=== PATIENT | male | born 1935 | race Caucasian/White ===

== ENCOUNTER 2016-10-18 21:14 | Inpatient (IN) | payer MEDICARE ==
--- NOTE | ~2016-10-18 | US84 ---
[id number] [facility]. [place] [address] [facility]. [place], [place] [address] [id number] I MR#: [id number] Acc #: [id number] NAME: YANELI ARCE : 1935 SEX: M STUDY DATE/TIME: 10/23/2016 14:57 UNIT: [facility] ROOM: 572 STUDY DESCRIPTION: US LE Veins Complete Artemio Stdy Attending Physician: Jax Gonzalez M.D. Ordering Physician: Parth Andre M.D. Primary Care Physician: Nancy Mosqueda M.D. MEDICAL IMAGING REPORT This report is preliminary unless electronic signature is present EXAM Bilateral lower extremity venous duplex, 10/23/2016. HISTORY Bilateral lower extremity edema for 4 days. Evaluate for deep vein thrombosis. TECHNIQUE Venous ultrasound examination of both lower extremities was performed using grayscale, spectral Doppler and color flow Doppler imaging. FINDINGS The examination is negative. There is no evidence of deep venous thrombus from the groin to the lower calf bilaterally. Visualized greater saphenous veins are also patent. IMPRESSION Negative examination. No evidence of lower extremity deep venous thrombosis. Dictated by... Brant Peña M.D. THIS IS AN ELECTRONICALLY VERIFIED REPORT Brant Peña M.D. at 10/24/2016 8:05 AM TERENCE/jerry TD: 10/23/2016 17:17 JOB #: [id number] MEDICAL IMAGING REPORT Page 1 of 1 COPY
--- NOTE | ~2016-10-18 | TOC ---
Unit #: [id number] #: [id number] Patient: YANELI ARCE [id number] [address] [place], [place] [address] [id number] I MR#: [id number] NAME: YANELI ARCE ROOM: 572 Age: 81 Sex: M Admission Date: 10/19/2016 : 1935 Attending Physician: Jax Gonzalez M.D. Primary Care Physician: Nancy Mosqueda M.D. TRANSFER OF CARE SUMMARY DIAGNOSES 1. Sepsis present on admission. 2. Aspiration pneumonia contributing to the sepsis, currently on Merrem. 3. 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 4. Dysphasia. Was seen by Dr. Esposito. No trach at this moment. Actually, the patient's tells me that she would not want the patient ever to have a PEG placed. 5. Acute hypoxic respiratory failure. The patient is currently still on oximeter at 7 liters a minute. 6. Controlled type 2 diabetes. 7. Prior CVA with dysphasia. 8. Gastroesophageal reflux disease. 9. Paroxysmal atrial fibrillation in sinus rhythm. 10. History of intracranial hemorrhage while he was on anticoagulant. This is remote. CONSULTANTS Pulmonary with Dr. Andre. PROCEDURES PERFORMED None. DIAGNOSTIC DATA IMAGING: Chest x-ray on 10/18/2016 with impression mild congestive heart failure. New since previous exam. Plate-like atelectasis in the right lower lung field with a shallow inspiratory effort. There is more extensive consolidation in the left lung base. This could simply represent bibasilar atelectasis. Left base pneumonia cannot be excluded. CT scan of the chest on 10/19/2016 with impression of bilateral interstitial thickening. This is nonspecific and may be interstitial edema or could be infectious or inflammatory. Consolidation in the base of the left lower lobe and lingula. Also mild consolidation/atelectasis in the base of the right lower lobe. Given the patient's history of pneumonia, this would be in keeping with the diagnosis of pneumonia. Followup to clearing is recommended. X-ray of the abdomen on 10/21/2016 with impression of large stool burden in the rectum with moderate amount of stool in the remainder of the colon. No obstruction. Lower extremity ultrasound with impression of negative examination. No evidence of lower extremity deep venous thrombosis. Unit #: [id number] #: [id number] Patient: YANELI ARCE CT angiogram of the chest on 10/23/2016 with impression of no pulmonary embolus identified. Evaluation of the lower lobe pulmonary arteries is limited by motion artifact. Small bilateral pleural effusions with mild atelectasis in the bilateral lower lobes, greater in the posterior right lower lobe and additional mild atelectasis in the right middle lobe and lingula. Moderate-sized hiatal hernia. Mild dilatation of the proximal descending thoracic aorta measuring 3.3 cm in diameter. The patient had echo done on 10/19/2016 with impression of technical difficult examination with a left ventricular systolic function normal. Estimated at 60%. Mild to moderate enlarged heart atrial size and moderately enlarged right ventricle. Mild mitral regurgitation is present. Mild tricuspid regurgitation is present. Mild pulmonic valvular regurgitation is present. Small pleural pericardial effusion versus fat tissue. LABORATORY: From today, BMP with glucose 171, BUN 31, creatinine 0.9, sodium 136, potassium 4.2, chloride 100, CO2 29, calcium 8.2, magnesium 1.9. CBC with white blood cell count 10.3, RBC 4.39, hemoglobin 13.8, hematocrit 42.9, MCV 97.5, MCH 31.5, MCHC 32.3, RDW 15.8, platelets 364, (1) 7.9. Please note that we have checked urine strep antigen, which is negative. Legionella was also negative. HOSPITAL COURSE The patient is an 81-year-old male with a past medical history of remote CVA, resulting in dysphasia. He had an intracranial bleed while on anticoagulant in the past. The patient has a chronic catheter in place, paroxysmal atrial fibrillation, chronic obstructive pulmonary disease, essential hypertension, type 2 diabetes, recurrent aspiration. The patient was brought to the emergency department due to symptoms of dyspnea. The patient has had about four days of symptoms of cough productive of sputum, felt somewhat feverish and blood sugar was difficult to control. Therefore, he presented to his primary care physician with the diagnosis of urinary tract infection. He was given Omnicef. Despite being on Omnicef he has become more congested and more dyspneic. Therefore, he presented to the emergency department for further evaluation. On admission his oxygen saturation was 83% on room air. Blood glucose was 576. He was bolused, given Rocephin, Zithromax and 20 units of NovoLog. He was admitted for aspiration pneumonia with failed outpatient Omnicef antibiotic. He was seen in consultation with Dr. Andre. The patient has been receiving antibiotics with Merrem since 10/22/2016. He was initially treated with Zosyn on admission, but when it was determined that his urinary tract infection from his chronic catheter had ESBL this was then changed to Merrem. The patient's tells me that at baseline he does not ambulate. The patient has a hospital bed. She has a lift that she uses to get him up to move around. The patient does not participate in his total care. He is only able to help with his pivots, but does not do anything else other than that. He does have a history of recurrent aspiration pneumonia after his CVA. He does have dysphasia. He is already on thickened diet. He has had a PEG in the past and his tells me that she would not want to go down that path again. She tells me that she is compliant with a nectar thickened diet. I voiced to her that the patient will always be at risk to aspirate and he will aspirate again and again and even when she is 100% complaint with this he is still at risk to aspirate. The topic of comfort Hospice care has been brought up to the patient's , but she states that she would not want Unit #: [id number] #: [id number] Patient: YANELI ARCE for him to be under Hospice. She would like for him to be discharged home to her when he is stable. At this time he is still requiring much oxygen at 7 liters a minute. We are attempting to wean off of oxygen, but have not been very successful. Rehab ruled out heart involvement with normal BNP, normal echo and have also ruled out pulmonary embolism. At this time the patient's prognosis is guarded. Believe the patient has a very poor quality of life, given he has a hospital bed, does not do much for himself and will always be at risk to aspirate. Dictated by... SUMAYA Angel TD: 10/26/2016 13:41 JOB #: [id number] TRANSFER OF CARE SUMMARY Page 1 of 1 X X TRANSFER OF CARE SUMMARY
--- NOTE | ~2016-10-18 | CT57 ---
[facility] A Service of [facility] RADIOLOGY TEXT RESULTS PATIENT: YANELI ARCE LOCATION: [facility] 572-01 : [birth year] UNIT #: [id number] AGE: [address]: Jax Gonzalez MD SEX: M ORDER DR: [id number] [facility] [address] [facility]. [place], [place] [address] [id number] I MR#: [id number] Acc #: [id number] NAME: YANELI ARCE : 1935 SEX: M STUDY DATE/TIME: 10/19/2016 12:50 UNIT: [facility] ROOM: [facility] STUDY DESCRIPTION: CT Chest Wo Cont Attending Physician: Jax Gonzalez M.D. Ordering Physician: Jax Gonzalez M.D. Primary Care Physician: Nancy Mosqueda M.D. MEDICAL IMAGING REPORT This report is preliminary unless electronic signature is present EXAM CT of the chest without contrast INDICATIONS Pneumonia, fever, and shortness of breath since October 13. TECHNIQUE CT of the chest was performed without contrast. Coronal and sagittal reformatted images were obtained. This CT exam was performed with one or more of the following radiation dose reduction techniques: automatic exposure control, adjustment of mA and/or kV according to patient size, and iterative reconstruction. COMPARISON 05/23/2014. FINDINGS There are emphysematous changes of the lungs. There is airspace consolidation in the base of the left lower lobe and consolidation/atelectasis within the base of the right lower lobe. There is trace pleural fluid on the right. There is some mild consolidation or atelectasis in the posterior lingula. There is bilateral interstitial thickening. There is no lymphadenopathy. There is a moderate sized hiatal hernia. Limited imaging of the upper abdomen demonstrates simple and hyperdense cysts in the right kidney. Bone windows demonstrate degenerative changes of the thoracic spine. IMPRESSION 1. There is bilateral interstitial thickening. This is nonspecific and may be interstitial edema or could be infectious or inflammatory. 2. There is consolidation in the base of the left lower lobe and lingula [facility] A Service of [facility] RADIOLOGY TEXT RESULTS PATIENT: YANELI ARCE LOCATION: [facility] 572-01 : [birth year] UNIT #: [id number] AGE: [address]: Jax Gonzalez MD SEX: M ORDER DR: and also mild consolidation/atelectasis in the base of the right lower lobe. Given the patient's history of pneumonia, this would be in keeping with the diagnosis of pneumonia. Follow up to clearing is recommended. 3. Additional findings as described. Dictated by... Douglas Jesus M.D. THIS IS AN ELECTRONICALLY VERIFIED REPORT Douglas Jesus M.D. at 10/19/2016 4:43 PM MATT/gemma TD: 10/19/2016 15:36 JOB #: [id number] MEDICAL IMAGING REPORT Page 1 of 1 COPY
--- NOTE | ~2016-10-18 | EKG ---
PATIENT: YANELI ARCE UNIT #: [id number] Ventricular Rate: 82 BPM Atrial Rate: 82 BPM P-R Interval: 206 ms QRS Duration: 84 ms Q-T Interval: 364 ms QTC Calculation(Bezet): 425 ms P [place]: 62 degrees Calculated R [place]: -16 degrees Calculated T [place]: 42 degrees Diagnosis Line: Normal sinus rhythm Diagnosis Line: Inferior infarct , age undetermined Diagnosis Line: Abnormal ECG Diagnosis Line: No previous ECGs available Diagnosis Line: Confirmed by SHE SANTIAGO MD ([id number]) on Diagnosis Line: 10/20/2016 6:35:36 AM INTERPRETING MDGustavo RIVERA
--- NOTE | ~2016-10-18 | DS ---
Unit #: [id number] #: [id number] Patient: YANELI ARCE [id number] [address] [address] [id number] I MR#: [id number] NAME: YANELI ARCE ROOM: 572 Age: 81 Sex: M Admission Date: 10/19/2016 : 1935 Discharge Date: Attending Physician: Jax Gonzalez M.D. Primary Care Physician: Nancy Mosqueda M.D. DISCHARGE SUMMARY ADDENDUM Please see complete discharge summary dictated on October 26, 2016, for details of initial part of hospital stay. Essentially, over the weekend, we awaited certification from [facility]. Once a bed is available at [facility], the patient will be transferred for ongoing evaluation and/or care. His Coreg has been resumed at 6.25 mg p.o. b.i.d. and he is currently on IV Solu-Medrol as well as IV Merrem. Once a bed is available at [facility], the patient will be transferred. Please see above transfer of care summary for details of hospital course. Dictated by... Catherine Grewal/urbano TD: 10/29/2016 11:22 JOB #: [id number] DISCHARGE SUMMARY Page 1 of 1 X Jax Gonzalez MD X DISCHARGE SUMMARY
--- NOTE | ~2016-10-18 | CT16 ---
[facility] A Service of [facility] RADIOLOGY TEXT RESULTS PATIENT: YANELI ARCE LOCATION: [facility] 572-01 : [birth year] UNIT #: [id number] AGE: [address]: Jax Gonzalez MD SEX: M ORDER DR: [id number] [facility] [address] [facility] [place], [place] [address] [id number] I MR#: [id number] Acc #: [id number] NAME: YANELI ARCE : 1935 SEX: M STUDY DATE/TIME: 10/23/2016 18:40 UNIT: [facility] ROOM: [facility] STUDY DESCRIPTION: CT Angio Chest for PE Attending Physician: Jax Gonzalez M.D. Ordering Physician: Parth Andre M.D. Primary Care Physician: Nancy Mosqueda M.D. MEDICAL IMAGING REPORT This report is preliminary unless electronic signature is present EXAM CT angiogram chest with IV contrast HISTORY Shortness of air and cough for 5 days. FINDINGS IV contrast-enhanced CT angiogram of the chest was performed with 3-D reconstructions. This CT exam was performed with one or more of the following radiation dose reduction techniques: Automatic exposure control, adjustment of mA and/or kV according to patient size, and iterative reconstruction. There are small bilateral pleural effusions, with moderate atelectasis in the posterior right lower lobe and mild atelectasis in the posterior and inferior left lower lobe, and mild atelectasis in the right middle lobe and lingula. These findings are stable compared to CT chest 10/19/2016. No new infiltrates. Mild bilateral emphysema, greater in the right upper lobe. Moderate-sized hiatal hernia. No pulmonary embolus is identified, but sensitivity is limited in evaluating the lower lobes due to respiratory motion artifact. Normal caliber ascending thoracic aorta and normal caliber aortic arch. Mild dilatation of the proximal descending thoracic aorta measuring 3.3 cm in diameter. IMPRESSION 1. No pulmonary embolus is identified. Evaluation of the lower lobe pulmonary arteries is limited by motion artifact. 2. Small bilateral pleural effusions with mild atelectasis in the bilateral lower lobes, greater in the posterior right lower lobe and additional mild atelectasis in the right middle lobe and lingula. 3. Moderate-sized hiatal hernia. 4. Mild dilatation of the proximal descending thoracic aorta measuring [facility] A Service of [facility] RADIOLOGY TEXT RESULTS PATIENT: YANELI ARCE LOCATION: [facility] 572-01 : [birth year] UNIT #: [id number] AGE: [address]: Jax Gonzalez MD SEX: M ORDER DR: 3.3 cm in diameter. Dictated by... Charles Bullard M.D. THIS IS AN ELECTRONICALLY VERIFIED REPORT Charles Bullard M.D. at 10/24/2016 9:09 PM MIRZA/james TD: 10/23/2016 22:40 JOB #: [id number] MEDICAL IMAGING REPORT Page 1 of 1 COPY
--- NOTE | ~2016-10-18 | CO ---
Unit #: [id number] #: [id number] Patient: YANELI ARCE [id number] [address] [place], [place] [address] [id number] I MR#: [id number] NAME: YANELI ARCE ROOM: 572 Age: 81 Sex: M Admission Date: 10/19/2016 : 1935 Attending Physician: Jax Gonzalez M.D. Primary Care Physician: Nancy Mosqueda M.D. CONSULTATION REPORT REASON FOR CONSULTATION Respiratory failure and shortness of breath. HISTORY OF PRESENT ILLNESS The patient is an 81-year-old male with past medical history significant for dysphagia, CVA, COPD, hypertension, diabetes mellitus, previous PEG tube placement, aspiration pneumonia, back surgery, who presents with the complaint of shortness of breath and was found to have pneumonia. Oxygen saturation was 83% on room air. Patient currently on 40% FIO2. I am seeing the patient at the bedside, complaining of mild shortness of breath. The patient denies any nausea, vomiting, diarrhea. PAST MEDICAL HISTORY As described above. SOCIAL HISTORY Ex-smoker. No alcohol. No drug abuse. FAMILY HISTORY None as per record. MEDICATION As per MAR, has been reviewed. REVIEW OF SYSTEMS Unobtainable because of the patient's poor cognition. PHYSICAL EXAMINATION VITAL SIGNS: Temperature 98. Pulse 87. Respiration 12. Blood pressure 130/70. NEUROLOGIC: Awake, alert, oriented. No neuro deficit. HEENT: PERRLA. NECK: Supple. No JVD. CHEST: Bilateral air entry. Bilateral mild rhonchi. GASTROINTESTINAL: Nontender. Soft. Bowel sounds positive. EXTREMITIES: No edema. SKIN: No rash. LYMPHATIC: No lymphadenopathy. ASSESSMENT AND PLAN Pneumonia, likely underlying COPD with exacerbation, likely aspiration, UTI, dehydration, gastroesophageal reflux disease. The plan is to continue the patient on IV antibiotics, add IV steroid, bronchodilator, GI and DVT prophylaxis. Please see orders for detailed plan. Unit #: [id number] #: [id number] Patient: YANELI ARCE Thank you very much for this consultation. We will also do a swallow evaluation. Dictated by... Parth Andre M.D. Kirti TD: 10/20/2016 17:55 JOB #: [id number] CONSULTATION REPORT Page 1 of 1 X Parth Andre MD CONSULTATION REPORT
--- NOTE | ~2016-10-18 | CR72 ---
[facility] A Service of [facility] RADIOLOGY TEXT RESULTS PATIENT: YANELI ARCE LOCATION: [facility] 28438-23 : 33 UNIT #: [id number] AGE: [address]: Jax Gonzalez MD SEX: M ORDER DR: [id number] [facility] [address] [facility]. [place], [place] [address] [id number] MR#: [id number] Acc #: [id number] NAME: YANELI ARCE : 1935 SEX: M STUDY DATE/TIME: 10/18/2016 21:19 UNIT: [facility] ROOM: STUDY DESCRIPTION: CR Chest Single View Portable Attending Physician: Roe Huerta M.D. Ordering Physician: Roe Huerta M.D. Primary Care Physician: Nancy Mosqueda M.D. MEDICAL IMAGING REPORT This report is preliminary unless electronic signature is present EXAM Portable chest HISTORY Cough and shortness of breath, onset today. TECHNIQUE Single view of the chest was obtained and compared with 05/28/2014. FINDINGS Stable cardiomegaly is noted. The aorta is tortuous. The inspiratory effort is shallower than on the previous examination. Pulmonary vascular markings have increased and there is linear infiltrate at the right base likely representing plate-like atelectasis. There is relatively more consolidation at the left lung base. The possibility of a superimposed left base infiltrate such as pneumonia cannot be excluded. IMPRESSION 1. Mild congestive heart failure, new since the previous exam. 2. Plate-like atelectasis in the right lower lung field with a shallow inspiratory effort. 3. There is more extensive consolidation at the left lung base. This could simply represent basilar atelectasis. A left base pneumonia cannot be excluded. Dictated by... Kenneth Sexton M.D. THIS IS AN ELECTRONICALLY VERIFIED REPORT Kenneth Sexton M.D. at 10/19/2016 10:08 AM RLF/james [facility] A Service of [facility] RADIOLOGY TEXT RESULTS PATIENT: YANELI ARCE LOCATION: [facility] [address]09-15 : 33 UNIT #: [id number] AGE: [address]: Jax Gonzalez MD SEX: M ORDER DR: TD: 10/18/2016 23:02 JOB #: [id number] MEDICAL IMAGING REPORT Page 1 of 1 COPY
--- NOTE | ~2016-10-18 | EKG ---
PATIENT: YANELI ARCE UNIT #: [id number] Ventricular Rate: 66 BPM Atrial Rate: 66 BPM P-R Interval: 208 ms QRS Duration: 92 ms Q-T Interval: 396 ms QTC Calculation(Bezet): 415 ms P [place]: 68 degrees Calculated R [place]: -17 degrees Calculated T [place]: 28 degrees Diagnosis Line: Normal sinus rhythm Diagnosis Line: Low voltage QRS Diagnosis Line: Inferior infarct (cited on or before 28-NOV-2010) Diagnosis Line: Abnormal ECG Diagnosis Line: When compared with ECG of 18-OCT-2016 21:50, Diagnosis Line: No significant change was found Diagnosis Line: Confirmed by SHE SANTIAGO MD ([id number]) on Diagnosis Line: 10/26/2016 11:01:29 PM INTERPRETING MD: NICOLE
--- NOTE | ~2016-10-18 | TOC ---
Unit #: [id number] #: [id number] Patient: YANELI ARCE [id number] [address] [place], [place] [address] [id number] I MR#: [id number] NAME: YANELI ARCE ROOM: 572 Age: 81 Sex: M Admission Date: 10/19/2016 : 1935 Attending Physician: Jax Gonzalez M.D. Primary Care Physician: Nancy Mosqueda M.D. TRANSFER OF CARE SUMMARY ADDENDUM HOSPITAL COURSE Since the time of the original report, patient has been accepted to [facility] for continuing rehab care there. At this time it is felt that patient can be discharged there so that the patient can be slowly weaned off of oxygen and physical therapy as needed. DISCHARGE CONDITION Stable. DISPOSITION Roman. ACTIVITY With physical therapy and occupational therapy. DISCHARGE MEDICATIONS 1. Penicillin 50 mg p.o. daily. 2. Flomax 0.4 mg p.o. at bedtime. 3. Lyrica 100 mg p.o. b.i.d. 4. Seroquel 50 mg p.o. in the a.m., 100 mg at bedtime. 5. Coreg 6.25 mg p.o. b.i.d. 6. Pravastatin 40 mg p.o. daily at bedtime. 7. Clonidine 0.1 mg p.o. b.i.d. 8. Levemir 15 units subcutaneously b.i.d. with meals. 9. Low-dose sliding scale prior to meals and at bedtime. 10. Iron supplement 250 mg p.o. t.i.d. 11. Finasteride 5 mg p.o. daily. 12. Protonix 40 mg p.o. b.i.d. 13. Meropenem 500 mg IV q.8 h. until 10/29/2016. 14. Haldol 1 mg p.o. q.6 h. p.r.n. agitation and anxiety. Dose to be adjusted per patient's symptoms. Dictated by... Pablo Marshall PA-C for Catherine Grewal TD: 10/26/2016 15:00 JOB #: [id number] Unit #: [id number] #: [id number] Patient: YANELI ARCE TRANSFER OF CARE SUMMARY Page 1 of 1 X X TRANSFER OF CARE SUMMARY
--- NOTE | ~2016-10-18 | CR7 ---
[facility] A Service of [facility] RADIOLOGY TEXT RESULTS PATIENT: YANELI ARCE LOCATION: [facility] 572-01 : 33 UNIT #: [id number] AGE: [address]: Jax Gonzalez MD SEX: M ORDER DR: [id number] [facility] [address] [facility]. [place], [place] [address] [id number] I MR#: [id number] Acc #: [id number] NAME: YANELI ARCE : 1935 SEX: M STUDY DATE/TIME: 10/21/2016 10:15 UNIT: [facility] ROOM: [facility] STUDY DESCRIPTION: CR Abdomen Single AP View Attending Physician: Jax Gonzalez M.D. Ordering Physician: Jax Gonzalez M.D. Primary Care Physician: Nancy Mosqueda M.D. MEDICAL IMAGING REPORT This report is preliminary unless electronic signature is present EXAM Abdominal radiograph INDICATIONS Generalized abdominal pain since 10/19/2016 PROCEDURE 2 supine views of the abdomen. COMPARISON None. FINDINGS Moderate colonic stool with large stool burden in the rectum. Nonobstructed pattern. Degenerative change in the lumbar spine. IMPRESSION Large stool burden in the rectum with moderate amount of stool in the remainder of the colon. No obstruction. Dictated by... Jorge Mendoza M.D. THIS IS AN ELECTRONICALLY VERIFIED REPORT Jorge Mendoza M.D. at 10/22/2016 9:43 AM [place] TD: 10/21/2016 13:19 JOB #: [id number] MEDICAL IMAGING REPORT Page 1 of 1 COPY
--- NOTE | ~2016-10-18 | HP ---
Unit #: [id number] #: [id number] Patient: YANELI ARCE [id number] [address] [place], [place] [address] [id number] I MR#: [id number] NAME: YANELI ARCE ROOM: 90536 Age: 81 Sex: M Admission Date: 10/19/2016 : 1935 Attending Physician: Cate Cross M.D. Primary Care Physician: aNncy Mosqueda M.D. HISTORY AND PHYSICAL CHIEF COMPLAINT Pneumonia with respiratory failure and uncontrolled diabetes. HISTORY This 81-year-old male with previous CVAs, dysphagia, COPD, hypertension, diabetes mellitus, is admitted for pneumonia. History is obtained from the who tells me the patient was in his usual state of health until about four days ago. He had a cough productive of some white sputum at that time, felt somewhat feverish, and his sugars were more difficult to control. [place], and was diagnosed with a UTI, given Omnicef. Despite this antibiotic, he has become more ill. Has been a bit more confused as well. He presented to this emergency department last evening with an O2 saturation of 83% on room air. His serum glucose was 576, he is a bit dehydrated. In the ER he was bolused with a liter of saline, given Rocephin, Zithromax and 20 units of NovoLog. Currently has a low grade fever, was given some Tylenol. On examination he is somewhat lethargic but arousable. Chest x-ray shows possible mild congestive heart failure with a left lower lobe more distal than the right lower lobe atelectasis versus infiltrates. Urine shows significant pyuria but the patient has a chronic Delvalle catheter in place. PAST MEDICAL HISTORY 1. History of dysphagia on thickened liquids. 2. Admission 05/2014 for respiratory failure, pneumonia, serratia sepsis secondary to UTI. 3. CVA with residual left-sided weakness. The patient's tells me also had a hemorrhagic stroke as well. 4. Paroxysmal atrial fibrillation. 5. COPD. 6. Hypertension. 7. AODM. 8. Previous echo 2013, ejection fraction greater than 55%. 9. History of aspiration pneumonia. 10. Previous PEG, which was later removed. 11. Urinary retention with chronic Delvalle catheter in place. 12. BPH, status post TURP. 13. Back surgery. 14. Vein stripping of the legs bilaterally. ALLERGIES No known drug allergies. Unit #: [id number] #: [id number] Patient: YANELI ARCE HOME MEDICATIONS Colace 2 tablets b.i.d. as needed; Coreg 6.25 mg b.i.d.; Proscar 5 mg daily; iron 325 mg t.i.d.; Omnicef 300 mg b.i.d.; Pravachol 40 mg q.h.s.; Flomax 0.4 mg q.h.s.; Protonix 40 mg b.i.d.; Lyrica 100 mg b.i.d.; Lantus 13 in the morning and 10 units in the evening. FAMILY HISTORY Diabetes and Parkinson disease. SOCIAL HISTORY The patient lives with his , stopped smoking about 30 years ago, does not drink alcohol. REVIEW OF SYSTEMS Impossible to obtain as patient is confused. PHYSICAL EXAMINATION GENERAL: Confused 81-year-old male who is a bit somnolent but does arouse and follows some command. VITAL SIGNS: Temperature was as high as 100.5, pulse 99, respirations 16, blood pressure 138/95, O2 saturations 83% on room air. HEENT: Eyes - PERRLA, extraocular muscles are intact. Pharynx - dry mucosal membranes. NECK: Supple without adenopathy or thyromegaly. CHEST: Diminished breath sounds. CARDIAC: Normal S1 and S2 without definite murmur. ABDOMEN: Bowel sounds are present. No hepatosplenomegaly, tenderness or masses. EXTREMITIES: Without edema. Pedal pulses are diminished. No ulcers on the feet. NEUROLOGIC: Patient is somnolent but arousable. He is confused. He is weak on the left side. DIAGNOSTIC STUDIES ADMISSION LABS: Hematocrit 48.8, white blood count is 12.2, MCV is 100.7. Coags normal. SMA 12 - glucose 576, BUN 26, chloride 98, albumin 2.7, alk phos 172, lactic acid is normal. Cardiac markers are negative. Urinalysis - positive leukocyte esterase, glucose, with 50 to 100 red cells, 25 to 50 white cells, but no bacteria. IMAGING STUDIES: Chest mild congestive heart failure, left lower lobe greater than right lower lobe atelectasis versus infiltrates. CARDIOLOGY STUDIES: EKG - sinus rhythm rate 82, Q noted in 3 and AVF, nonspecific ST wave abnormalities. ASSESSMENT 1. Pneumonia, which could be community acquired versus aspiration pneumonia with acute hypoxic respiratory failure despite Omnicef. 2. Possible UTI versus colonization with chronic Delvalle catheter in place. 3. Uncontrolled diabetes mellitus. 4. Dehydration. 5. Prior CVA with dysphagia. 6. GERD. 7. Paroxysmal atrial fibrillation and normal sinus rhythm. 8. History of intracranial bleed in the past. 9. COPD. Unit #: [id number] #: [id number] Patient: YANELI ARCE PLANS 1. IV fluids. 2. Zosyn and doxycycline for now. 3. Speech to evaluate swallowing. 4. Diabetic control. 5. SCDs for DVT prophylaxis. 6. Change medications to an alternative route if NPO. 7. Check echo and repeat labs in the morning. Dictated by Cate Cross M.D. AML/ts TD: 10/19/2016 05:01 JOB #: [id number] HISTORY AND PHYSICAL Page 1 of 1 X Cate Cross MD X HISTORY AND PHYSICAL
[~2016-10-18 21:14] MED LIST: ACEPHEN650 MG RC; ACETAMINOPHEN325 MG PO; ASPIRIN81 M2 PO; CEFDINIR300 M2 PO; COREG6.25 M1 PO; DESYREL50 MG FT; DIOCTO PEG; DOCU SOFT100 M1 PEG; DOK PLUS TABLE1 EACH PO; FEOSOL300 MG/5 M PEG; FERRO-TIME325 MG PO; FERROUS SULFAT325 MG PO; FINASTERIDE5 MG PO; FLOMAX0.4 M1 PO; FUROSEMIDE40 MG PO; GLIPIZIDE10 MG PO; HALDOL PO; LANTUS100 U/ML SUBQ; LANTUS100 UNITS/ SUBQ; LEVAQUIN750 MG PO; LOPRESSOR PO; LYRICA PO; LYRICA100 MG PO; METOPROLOL SUCC25 MG PO; METOPROLOL TAR25 MG PO; NITROFURANTOIN100 M4 PO; NORVASC PO; NOVOLOG100 U/M2 SUBQ; NOVOLOG100 U/ML SUBQ; NYSTATIN15 G1 TP; OMEPRAZOLE20 M2 PO; OXYCODON HCL-AP1 TA2 PO; OXYCODONE APAP PO; PAIN & FEVER325 MG PO; PANTOPRAZOLE SO40 MG PO; PERCOCET 5-3251 TAB PO; PERCOCET 5/321 UDTAB PO; PRAVASTATIN SOD40 MG PO; PRINIVIL10 MG PO; PROSCAR5 MG PO; PROTONIX FT; PROTONIX PO; SIMVASTATIN40 MG PO; SODIUM CHLORID250 ML PEG; TRAZODONE PO; ZESTRIL40 MG PO; ZOCOR80 MG PO
[2016-10-18 21:33] LABS: URINE SOURCE CLEAN CATCH
[2016-10-18 21:41] LABS: BASOPHIL# 0.1 X10e3 (0-0.3); BASOPHIL% 0.4 % (0-2.5); EOSINOPHIL% 0.3 % (0.0-7.0); HEMATOCRIT 48.8 % (38.0-50.0); HEMOGLOBIN 15.7 gm/dL (13.0-16.0); LYMPHOCYTE# 0.7 X10e3 (1.0-3.5); LYMPHOCYTE% 5.8 % (17.0-45.0); MEAN CELL VOLUME 100.7 FL (83-96); MEAN CORPUSCULAR HEMOGLOBIN 32.4 PG (28-34); MEAN CORPUSCULAR HGB CONC 32.2 g/dL (30-36); MEAN PLATELET VOLUME 8.7 FL (6.5-11.5); MONOCYTE# 0.7 X10e3 (0-1.0); NEUTROPHIL# 10.7 X10e3 (1.5-7.1); NEUTROPHIL% 87.5 % (40-75); PLATELET COUNT 312 X10e3 (140-420); RED BLOOD COUNT 4.85 X10e (3.90-5.60); RED CELL DISTRIBUTION WIDTH 16.8 % (11.0-15.5); WHITE BLOOD COUNT 12.2 X10e3 (4.0-10.5)
[2016-10-18 21:44] LABS: DIFF IND NO
[2016-10-18 21:51] LABS: PROTHROMBIN TIME (PATIENT) 10.8 SECONDS (9.6-11.5)
[2016-10-18 22:01] LABS: URINE APPEARANCE CLEAR; URINE BILIRUBIN NEG (NEG); URINE BLOOD 2+ (NEG); URINE COLOR YELLOW; URINE GLUCOSE >1000 MG/DL (NEG); URINE KETONE NEG (NEG); URINE LEUKOCYTE ESTERASE 1+ (NEG); URINE NITRATE NEG (NEG); URINE PROTEIN 2+ (NEG); URINE SPECIFIC GRAVITY 1.034 (1.003-1.035)
[2016-10-18 22:03] LABS: CULTURE INDICATED? YES; URBCS1 AUWI 50-100 /[HPF] (0-2); URINE BACTERIA AUWI NEG (NEGATIVE); URINE SQUAMOUS EPITHELIAL CELL NONE SEEN /[HPF]; UWBCS1 AUWI 25-50 (0-5)
[2016-10-18 22:09] LABS: ALBUMIN SERUM 2.7 g/dL (3.5-5.0); BILIRUBIN, DIRECT 0.1 mg/dL (0.0-0.2); BILIRUBIN,INDIRECT 0.2 mg/dL (0.0-0.9); BILIRUBIN,TOTAL 0.3 mg/dL (0.2-2.0); CALCIUM SERUM 8.4 mg/dL (8.4-10.2); CREATININE SERUM 1.3 mg/dL (0.6-1.4); GLOM FILT RATE Estimated 50.5 mL/min (>60); MAGNESIUM 2.1 mg/dL (1.6-3.0); PHOSPHOROUS 2.7 mg/dL (2.5-4.6); POTASSIUM 4.2 mmol/L (3.5-5.1); PROTEIN TOTAL SERUM 7.5 g/dL (6.0-8.3)
[2016-10-18 22:13] LABS: URINE YEAST PRESENT
[2016-10-18] MEDS ORDERED: LANTUS100 U/ML SUBQ ×2 (22:47)
[2016-10-18 23:31] LABS: POC - CKMB 3.8 ng/mL (0.0-7.9); POC - TROPONIN 0.09 ng/mL (<=0.05)
[2016-10-18 23:55] LABS: POC - CKMB 1.9 ng/mL (0.0-7.9); POC - TROPONIN <0.05 ng/mL (<=0.05)
[2016-10-19 08:34] LABS: BASOPHIL# 0.1 X10e3 (0-0.3); BASOPHIL% 0.4 % (0-2.5); EOSINOPHIL# 0.1 X10e3 (0-0.7); EOSINOPHIL% 0.8 % (0.0-7.0); HEMATOCRIT 45.2 % (38.0-50.0); HEMOGLOBIN 14.2 gm/dL (13.0-16.0); LYMPHOCYTE# 0.9 X10e3 (1.0-3.5); LYMPHOCYTE% 6.6 % (17.0-45.0); MEAN CELL VOLUME 100.8 FL (83-96); MEAN CORPUSCULAR HEMOGLOBIN 31.6 PG (28-34); MEAN CORPUSCULAR HGB CONC 31.3 g/dL (30-36); MEAN PLATELET VOLUME 8.4 FL (6.5-11.5); MONOCYTE# 1.2 X10e3 (0-1.0); MONOCYTE% 8.7 % (3.0-12.0); NEUTROPHIL# 11.2 X10e3 (1.5-7.1); NEUTROPHIL% 83.5 % (40-75); PLATELET COUNT 290 X10e3 (140-420); RED BLOOD COUNT 4.49 X10e (3.90-5.60); RED CELL DISTRIBUTION WIDTH 16.5 % (11.0-15.5); WHITE BLOOD COUNT 13.4 X10e3 (4.0-10.5)
[2016-10-19 08:38] LABS: DIFF IND NO
[2016-10-19 09:54] LABS: CALCIUM SERUM 8.2 mg/dL (8.4-10.2); CREATININE SERUM 1.1 mg/dL (0.6-1.4); GLOM FILT RATE Estimated 61.8 mL/min (>60); POTASSIUM 3.7 mmol/L (3.5-5.1)
[2016-10-19] MEDS ORDERED: SEROQUEL100 MG PO (14:11)
[2016-10-19] MEDS ORDERED: SEROQUEL50 M1 PO (14:12)
[2016-10-20 06:20] LABS: HEMATOCRIT 43.9 % (38.0-50.0); HEMOGLOBIN 13.8 gm/dL (13.0-16.0); MEAN CELL VOLUME 101.1 FL (83-96); MEAN CORPUSCULAR HEMOGLOBIN 31.7 PG (28-34); MEAN CORPUSCULAR HGB CONC 31.4 g/dL (30-36); MEAN PLATELET VOLUME 8.1 FL (6.5-11.5); RED BLOOD COUNT 4.34 X10e (3.90-5.60); WHITE BLOOD COUNT 10.5 X10e3 (4.0-10.5)
[2016-10-20 06:47] LABS: LEGIONELLA AG URINE NEG (NEG)
[2016-10-20 07:18] LABS: BUN/CREATININE RATIO 16.66; CREATININE SERUM 1.2 mg/dL (0.6-1.4); GLOM FILT RATE Estimated 55.6 mL/min (>60); MAGNESIUM 1.8 mg/dL (1.6-3.0); POTASSIUM 3.9 mmol/L (3.5-5.1)
[2016-10-20 13:35] LABS: ARTERIAL BLD GAS O2 SATURATION 91.1 % (90.0-100.0); ARTERIAL BLOOD GAS CARBOXY HB 1.5 %sat (0.0-9.0); ARTERIAL BLOOD GAS MET HB 0.7 %sat (0.0-2.0); ARTERIAL BLOOD GAS pH 7.378 (7.350-7.450)
[2016-10-20 13:37] LABS: ARTERIAL BLOOD GAS ALLEN TEST N; ARTERIAL BLOOD GAS ART SITE RIGHT RADIAL; ARTERIAL BLOOD GAS HCO3 30.1 mmol/L; ARTERIAL BLOOD GAS PO2 64.3 mmHg (80.0-100); ARTERIAL DRAW? YES
[2016-10-20 13:38] LABS: ARTERIAL BLOOD GAS DELIVERY VENTURI MASK
[2016-10-21 05:28] LABS: HEMOGLOBIN 14.3 gm/dL (13.0-16.0); MEAN CELL VOLUME 99.1 FL (83-96); MEAN CORPUSCULAR HEMOGLOBIN 31.5 PG (28-34); MEAN CORPUSCULAR HGB CONC 31.8 g/dL (30-36); MEAN PLATELET VOLUME 8.3 FL (6.5-11.5); RED BLOOD COUNT 4.54 X10e (3.90-5.60); RED CELL DISTRIBUTION WIDTH 15.7 % (11.0-15.5); WHITE BLOOD COUNT 6.8 X10e3 (4.0-10.5)
[2016-10-21 06:03] LABS: ALBUMIN SERUM 2.1 g/dL (3.5-5.0); BILIRUBIN,TOTAL 0.8 mg/dL (0.2-2.0); BUN/CREATININE RATIO 19.16; CALCIUM SERUM 8.2 mg/dL (8.4-10.2); CREATININE SERUM 1.2 mg/dL (0.6-1.4); GLOM FILT RATE Estimated 55.6 mL/min (>60); POTASSIUM 3.7 mmol/L (3.5-5.1); PROTEIN TOTAL SERUM 5.6 g/dL (6.0-8.3)
[2016-10-22 05:57] LABS: HEMOGLOBIN 12.8 gm/dL (13.0-16.0); MEAN CELL VOLUME 98.1 FL (83-96); MEAN CORPUSCULAR HEMOGLOBIN 31.2 PG (28-34); MEAN CORPUSCULAR HGB CONC 31.9 g/dL (30-36); MEAN PLATELET VOLUME 7.7 FL (6.5-11.5); RED BLOOD COUNT 4.08 X10e (3.90-5.60); RED CELL DISTRIBUTION WIDTH 15.3 % (11.0-15.5)
[2016-10-22 06:03] LABS: WHITE BLOOD COUNT 12.2 X10e3 (4.0-10.5)
[2016-10-22 06:49] LABS: BUN/CREATININE RATIO 20.83; CALCIUM SERUM 8.2 mg/dL (8.4-10.2); CREATININE SERUM 1.2 mg/dL (0.6-1.4); GLOM FILT RATE Estimated 55.6 mL/min (>60); POTASSIUM 3.6 mmol/L (3.5-5.1)
[2016-10-22 11:28] LABS: ARTERIAL BLD GAS O2 SATURATION 88.9 % (90.0-100.0); ARTERIAL BLOOD GAS ALLEN TEST NORMAL; ARTERIAL BLOOD GAS ART SITE RIGHT RADIAL; ARTERIAL BLOOD GAS CARBOXY HB 0.9 %sat (0.0-9.0); ARTERIAL BLOOD GAS HCO3 28.4 mmol/L; ARTERIAL BLOOD GAS MET HB 0.7 %sat (0.0-2.0); ARTERIAL BLOOD GAS PCO2 47.6 mmHg (35.0-45.0); ARTERIAL BLOOD GAS PO2 57.9 mmHg (80.0-100); ARTERIAL BLOOD GAS pH 7.385 (7.350-7.450); ARTERIAL DRAW? YES
[2016-10-23 07:23] LABS: HEMATOCRIT 43.2 % (38.0-50.0); HEMOGLOBIN 13.6 gm/dL (13.0-16.0); MEAN CELL VOLUME 99.1 FL (83-96); MEAN CORPUSCULAR HEMOGLOBIN 31.2 PG (28-34); MEAN CORPUSCULAR HGB CONC 31.5 g/dL (30-36); MEAN PLATELET VOLUME 8.1 FL (6.5-11.5); RED BLOOD COUNT 4.36 X10e (3.90-5.60); RED CELL DISTRIBUTION WIDTH 15.9 % (11.0-15.5); WHITE BLOOD COUNT 12.5 X10e3 (4.0-10.5)
[2016-10-23 07:54] LABS: BUN/CREATININE RATIO 25.83; CALCIUM SERUM 7.8 mg/dL (8.4-10.2); CREATININE SERUM 1.2 mg/dL (0.6-1.4); GLOM FILT RATE Estimated 55.6 mL/min (>60); POTASSIUM 3.7 mmol/L (3.5-5.1)
[2016-10-24 06:32] LABS: HEMOGLOBIN 13.8 gm/dL (13.0-16.0); MEAN CELL VOLUME 97.9 FL (83-96); MEAN CORPUSCULAR HEMOGLOBIN 31.4 PG (28-34); MEAN CORPUSCULAR HGB CONC 32.1 g/dL (30-36); RED BLOOD COUNT 4.39 X10e (3.90-5.60); RED CELL DISTRIBUTION WIDTH 15.7 % (11.0-15.5); WHITE BLOOD COUNT 10.9 X10e3 (4.0-10.5)
[2016-10-24 08:49] LABS: ALBUMIN SERUM 2.1 g/dL (3.5-5.0); BILIRUBIN,TOTAL 0.5 mg/dL (0.2-2.0); CREATININE SERUM 1.1 mg/dL (0.6-1.4); GLOM FILT RATE Estimated 61.8 mL/min (>60); POTASSIUM 4.7 mmol/L (3.5-5.1); PROTEIN TOTAL SERUM 4.9 g/dL (6.0-8.3)
[2016-10-25 06:06] LABS: BASOPHIL% 0.3 % (0-2.5); EOSINOPHIL% 0.1 % (0.0-7.0); HEMATOCRIT 40.4 % (38.0-50.0); HEMOGLOBIN 13.1 gm/dL (13.0-16.0); LYMPHOCYTE# 0.4 X10e3 (1.0-3.5); LYMPHOCYTE% 4.6 % (17.0-45.0); MEAN CELL VOLUME 97.1 FL (83-96); MEAN CORPUSCULAR HEMOGLOBIN 31.5 PG (28-34); MEAN CORPUSCULAR HGB CONC 32.5 g/dL (30-36); MEAN PLATELET VOLUME 7.8 FL (6.5-11.5); MONOCYTE# 0.4 X10e3 (0-1.0); MONOCYTE% 4.9 % (3.0-12.0); NEUTROPHIL# 8.1 X10e3 (1.5-7.1); NEUTROPHIL% 90.1 % (40-75); PLATELET COUNT 340 X10e3 (140-420); RED BLOOD COUNT 4.16 X10e (3.90-5.60); RED CELL DISTRIBUTION WIDTH 15.3 % (11.0-15.5)
[2016-10-25 06:10] LABS: DIFF IND NO
[2016-10-25 07:05] LABS: CALCIUM SERUM 7.9 mg/dL (8.4-10.2); GLOM FILT RATE Estimated 69.3 mL/min (>60); MAGNESIUM 1.9 mg/dL (1.6-3.0); POTASSIUM 4.4 mmol/L (3.5-5.1)
[2016-10-26 06:29] LABS: HEMATOCRIT 42.9 % (38.0-50.0); HEMOGLOBIN 13.8 gm/dL (13.0-16.0); MEAN CELL VOLUME 97.5 FL (83-96); MEAN CORPUSCULAR HEMOGLOBIN 31.5 PG (28-34); MEAN CORPUSCULAR HGB CONC 32.3 g/dL (30-36); MEAN PLATELET VOLUME 7.9 FL (6.5-11.5); RED BLOOD COUNT 4.39 X10e (3.90-5.60); RED CELL DISTRIBUTION WIDTH 15.8 % (11.0-15.5); WHITE BLOOD COUNT 10.3 X10e3 (4.0-10.5)
[2016-10-26 07:19] LABS: BUN/CREATININE RATIO 34.44; CALCIUM SERUM 8.2 mg/dL (8.4-10.2); CREATININE SERUM 0.9 mg/dL (0.6-1.4); GLOM FILT RATE Estimated 78.7 mL/min (>60); MAGNESIUM 1.9 mg/dL (1.6-3.0); POTASSIUM 4.2 mmol/L (3.5-5.1)
[2016-10-27 03:46] LABS: ARTERIAL BLD GAS O2 SATURATION 89.7 % (90.0-100.0); ARTERIAL BLOOD GAS CARBOXY HB 0.8 %sat (0.0-9.0); ARTERIAL BLOOD GAS HCO3 35.2 mmol/L; ARTERIAL BLOOD GAS MET HB 0.6 %sat (0.0-2.0); ARTERIAL BLOOD GAS pH 7.433 (7.350-7.450)
[2016-10-27 03:51] LABS: ARTERIAL BLOOD GAS ALLEN TEST NORMAL; ARTERIAL BLOOD GAS ART SITE RIGHT RADIAL; ARTERIAL BLOOD GAS DELIVERY OXYMIZER; ARTERIAL BLOOD GAS PCO2 52.7 mmHg (35.0-45.0); ARTERIAL BLOOD GAS PO2 59.1 mmHg (80.0-100); ARTERIAL DRAW? YES
[2016-10-27 06:07] LABS: HEMATOCRIT 42.9 % (38.0-50.0); MEAN CELL VOLUME 97.6 FL (83-96); MEAN CORPUSCULAR HEMOGLOBIN 31.9 PG (28-34); MEAN CORPUSCULAR HGB CONC 32.7 g/dL (30-36); RED BLOOD COUNT 4.39 X10e (3.90-5.60); RED CELL DISTRIBUTION WIDTH 15.8 % (11.0-15.5); WHITE BLOOD COUNT 9.8 X10e3 (4.0-10.5)
[2016-10-27 08:35] LABS: ALBUMIN SERUM 2.3 g/dL (3.5-5.0); BILIRUBIN,TOTAL 0.6 mg/dL (0.2-2.0); BUN/CREATININE RATIO 32.22; CREATININE SERUM 0.9 mg/dL (0.6-1.4); GLOM FILT RATE Estimated 78.7 mL/min (>60); POTASSIUM 4.6 mmol/L (3.5-5.1); PROTEIN TOTAL SERUM 5.1 g/dL (6.0-8.3)
== END 2016-10-29 20:45 | DRG 871 ==
LOC: CED 21:14 → CEDOF 10-19 01:00 → C5C 10-19 13:07
PROVIDERS: Emergency Medicine; Family Medicine; Internal Medicine
PROC: B24BYZZ Ultrasonography of Heart with Aorta using Other Contrast (ICD-10-PCS; 2016-10-19)
PROC: 05H533Z Insertion of Infusion Device into Right Subclavian Vein, Percutaneous Approach (ICD-10-PCS; principal; 2016-10-23)
PROC: B546ZZA Ultrasonography of Right Subclavian Vein, Guidance (ICD-10-PCS; 2016-10-23)
PROC: B32TYZZ Computerized Tomography (CT Scan) of Left Pulmonary Artery using Other Contrast (ICD-10-PCS; 2016-10-23)
PROC: B32SYZZ Computerized Tomography (CT Scan) of Right Pulmonary Artery using Other Contrast (ICD-10-PCS; 2016-10-23)
DX: A41.9 Sepsis, unspecified organism (principal); J96.90 Respiratory failure, unspecified, unspecified whether with hypoxia or hypercapnia; J69.0 Pneumonitis due to inhalation of food and vomit; G93.41 Metabolic encephalopathy; J96.01 Acute respiratory failure with hypoxia; E11.65 Type 2 diabetes mellitus with hyperglycemia; I69.954 Hemiplegia and hemiparesis following unspecified cerebrovascular disease affecting left non-dominant side; I48.0 Paroxysmal atrial fibrillation; E86.0 Dehydration; R13.10 Dysphagia, unspecified; I10 Essential (primary) hypertension; J44.1 Chronic obstructive pulmonary disease with (acute) exacerbation; N39.0 Urinary tract infection, site not specified; N40.1 Benign prostatic hyperplasia with lower urinary tract symptoms; R33.8 Other retention of urine; Z87.891 Personal history of nicotine dependence; Z79.4 Long term (current) use of insulin; I69.991 Dysphagia following unspecified cerebrovascular disease; K21.9 Gastro-esophageal reflux disease without esophagitis; B96.20 Unspecified Escherichia coli [E. coli] as the cause of diseases classified elsewhere; I69.921 Dysphasia following unspecified cerebrovascular disease
CPT/HCPCS: 36415; 36600; 71010; 71250; 71275; 74000; 74230; 80048; 80053; 80076; 81003; 82150; 82308; 82550; 82553; 82803; 82947; 83605; 83690; 83735; 83880; 84100; 84484; 85025; 85027; 85610; 85730; 87040; 87086; 87088; 87186; 87449; 87899; 92526; 92610; 92611; 93005; 93306; 93970; 94640; 94760; 96360; 99285; C9113; G8996-GN; G8997-GN; G8998-GN; J0456; J0696; J1630; J1815; J2060; J2185; J2543; J2920; J2930; J3490; Q9967

== ENCOUNTER 2017-01-01 03:08 | Inpatient (IN) | payer MEDICARE ==
[~2017-01-01] VITALS: Ht 188 cm; Wt 84.6 kg
--- NOTE | ~2017-01-01 | CR72 ---
[facility] A Service of [facility] & [facility] RADIOLOGY TEXT RESULTS PATIENT: YANELI ARCE LOCATION: [address]-08 : [birth year] UNIT #: [id number] AGE: [address]: Fina Peterson MD SEX: M ORDER DR: [id number] [facility] [address]. [place], [place] [address] [id number] I MR#: [id number] Acc #: [id number] NAME: YANELI ARCE : 1935 SEX: M STUDY DATE/TIME: 01/11/2017 5:41 UNIT: [facility] ROOM: [facility] STUDY DESCRIPTION: CR Chest Single View Portable Attending Physician: Fina Peterson M.D. Ordering Physician: Liana Giordano M.D. Primary Care Physician: Nancy Mosqueda M.D. MEDICAL IMAGING REPORT This report is preliminary unless electronic signature is present EXAM Portable chest INDICATION Followup support lines and tubes, respiratory failure. COMPARISON 01/08/2017 FINDINGS The endotracheal tube has been removed. The right IJ central venous catheter is stable and the NG tube is also still present. Stable consolidation or atelectasis within the left base. Improved aeration of the right base. Heart size stable. IMPRESSION Improved aeration of the right base. Removal of endotracheal tube. No other change. Dictated by... Douglas Jesus M.D. THIS IS AN ELECTRONICALLY VERIFIED REPORT Douglas Jesus M.D. at 01/13/2017 12:10 PM Malina TD: 01/11/2017 10:07 JOB #: [id number] MEDICAL IMAGING REPORT Page 1 of 1 COPY
--- NOTE | ~2017-01-01 | FU ---
[facility] Therapy DATE: 01/18/17 Patient: YANELI ARCE Physician: IRVINGR Address: [address] Room/Bed: [address], Zip: [place] [address] Admit Date: 01/01/17 Date of : [birth year] Height: 6 2 Weight: 209 95.1 NUTRITION MONITORING/FOLLOW-UP: Reason: PT SEEN FOR FOLLOW-UP/ENTERAL NUTRITION SUPPORT DX: RESP DISTRESS, SEPSIS, AMS Anthropometrics: 5'11", WT: 209# (95 KG), BMI: 29.1 -WEIGHTS HAVE RANGED 192-246# SINCE ADMIT Labs: GLU: 161, BUN: 25, CA+:7.7, ALB: 2.3 Meds: LIPITOR, PROTONIX, MIRALAX, LEVEMIR, NOVOLOG, PREDNISONE, NACL I&O's: 3491/3360 Skin: PREVIOUSLY NOTED EDEMA: PEDAL EDEMA 1+ EDEMA Estimated Nutrition Needs: [id number] KCAL 95-113 G PRO Assessment: CHART REVIEWED AND EVENTS NOTED. PT SEEN FOR ENTERAL NUTRITION SUPPORT FOLLOW-UP. PT ASLEEP AT TIME OF VISIT RECEIVINE ENTERAL NUTRITION SUPPORT OF GLUCERNA 1.5 @ 55 ML/HR. PER RN AND CHART, PT TOLERATING ENS, NOTING NO ISSUES. PER PUMP HISTORY, PT RECEIVING ~90% TOTAL VOLUME PAST [address] FOR PT TO TRANSFER TO TELEMETRY. FAMILY AT BEDSIDE REPORTED NO DIET QUESTIONS AT THIS TIME. RD TO CONTINUE TO FOLLOW. -TUBE FEEDS PROVIDE 1980 KCAL, 108 G PRO, 1003 ML FREE H20 Dx: INADEQUATE ORAL INTAKE R/T CURRENT DIAGNOSIS, CURRENT CLINICAL CONDITION AEB ENTERAL NUTRITION SUPPORT IN PLACE.-ACTIVE Intervention: 1. ENTERAL NUTRITION SUPPORT OF GLUCERNA 1.5 Monitoring, Evaluation and Goals: 1. ENTERAL NUTRITION; TOLERATE >80% TOTAL VOLUME X 24 HOURS-MET 2. WEIGHTS; PROMOTE WEIGHT MAINTENANCE-IN PROGRESS 3. LABS; WNL-IN PROGRESS 4. GI; PROMOTE REGULAR GI FUNCTION 5. SKIN; PREVENT FURTHER SKIN BREAKDOWN-IN PROGRESS MONITOR ABOVE GOALS [facility] DATE: 01/18/17 Patient: YANELI ARCE Physician: ROGER Address: [address] Room/Bed: [address], Zip: [place] [address] Admit Date: 01/01/17 Date of : [birth year] Height: 6 2 Weight: 209 95.1 Recommendations: 1. CONTINUE CURRENT ENTERAL NUTRITION SUPPORT OF GLUCERNA 1.5 @ 55 ML/HR X 24 HOURS 2. OBTAIN UPDATED/CURRENT A1c TO BETTER ASSESS DM MANAGEMENT 3. ONCE FEASIBLE, ADVANCE DIET PER TAPE MACHINE TAILER EVEL + CC+ MECHANICAL SOFT + NECTAR THICK LIQUID DIET RD WILL F/U PER PROTOCOL PT IS MODERATELY COMPROMISED Respectfully, YESICA WALSH MS, RD, LD [facility] cc: client file
--- NOTE | ~2017-01-01 | CO ---
Unit #: [id number] #: [id number] Patient: YANELI ARCE [id number] [address] [place], [place] [address] [id number] I MR#: [id number] NAME: YANELI ARCE ROOM: CICCU2 Age: 81 Sex: M Admission Date: 01/01/2017 : 1935 Attending Physician: Jax Gonzalez M.D. Primary Care Physician: Nancy Mosqueda M.D. CONSULTATION REPORT REASON FOR CONSULTATION Critical care management and respiratory failure. CHIEF COMPLAINT AND HISTORY OF PRESENT ILLNESS This patient basically is an 81-year-old male who has a past medical history of COPD, aspiration pneumonia and respiratory failure, pulmonary hypertension, paroxysmal atrial fibrillation. The patient was recently discharge from [facility] by myself and went to the rehab. The patient presented with the complaint of shortness of breath, was found to be in acute respiratory failure and intubated. The patient was confused and a CT head was done also. I am seeing him at the bedside, currently intubated, sedated. PAST MEDICAL HISTORY Aspiration pneumonia, ESBL, dysphagia, acute on chronic respiratory failure, diabetes mellitus, previous stroke, gastroesophageal reflux disease, atrial fibrillation. SOCIAL HISTORY Nonsmoker. No alcohol. No drug abuse. FAMILY HISTORY None as per record. MEDICATION As per MAR, has been reviewed. REVIEW OF SYSTEMS Unobtainable. PHYSICAL EXAMINATION VITAL SIGNS: Currently, his temperature 98. Pulse 78. Respiration 13. Blood pressure 101/85. NEUROLOGIC: Sedated, intubated. CARDIOVASCULAR: S1+S2. RESPIRATORY: Bilateral air entry. Bilateral mild rhonchi. GASTROINTESTINAL: Nontender. Soft. Bowel sounds positive. EXTREMITIES: No edema. DIAGNOSTIC STUDIES LABORATORY: Labs have been reviewed. IMAGING: Chest x-ray showed bilateral basilar infiltrates. Unit #: [id number] #: [id number] Patient: YANELI ARCE ASSESSMENT AND PLAN Acute hypoxic, hypercapnic respiratory failure, acute exacerbation of COPD, acute bronchitis, rule out pneumonia. The plan is to continue ventilator support, continue oxygen, bronchodilator, get a 2D echo, troponin and IV fluids, broad-spectrum antibiotics. The patient will be closely monitored. Please see orders for detailed plan. Thank you very much for this consultation. We will continue to follow the patient very closely with you. Prognosis is guarded. Dictated by... Catherine Yang TD: 01/01/2017 10:40 JOB #: [id number] CONSULTATION REPORT Page 1 of 1 X Parth Andre MD CONSULTATION REPORT
--- NOTE | ~2017-01-01 | CR72 ---
[facility] A Service of [facility] & [facility] RADIOLOGY TEXT RESULTS PATIENT: YANLEI ARCE LOCATION: [facility] 307-01 : 33 UNIT #: [id number] AGE: [address]: Eduardo Aldridge MD SEX: M ORDER DR: [id number] [facility] [address] [place], [place] [address] [id number] I MR#: [id number] Acc #: [id number] NAME: YANELI ARCE : 1935 SEX: M STUDY DATE/TIME: 01/13/2017 5:45 [facility] STUDY DESCRIPTION: CR Chest Single View Portable Attending Physician: Fina Peterson M.D. Ordering Physician: Parth Andre M.D. Primary Care Physician: Nancy Mosqueda M.D. MEDICAL IMAGING REPORT This report is preliminary unless electronic signature is present EXAM Portable AP chest COMPARISON STUDIES 01/11/2017, 01/08/2017. HISTORY 81-year-old male with respiratory failure for 12 days. Hypotension. Dyspnea. FINDINGS IMPRESSION Feeding tube has been removed. There is a gastric suction-type tube seen, not traced below the level of the heart where it passes off the bottom aspect of the image. Right internal jugular catheter is again noted with the tip terminating in upper SVC. There is poor inspiratory effort with increased right basilar opacity and stable left basilar opacity. On the right, this likely reflects atelectasis and on the left, pneumonia, atelectasis and/or pleural effusion cannot be excluded. No evidence of pneumothorax. Cardiomediastinal silhouette is grossly stable, not well evaluated due to low lung volumes and patient rotation. Dictated by... Hector Grigsby M.D. THIS IS AN ELECTRONICALLY VERIFIED REPORT Hector Grigsby M.D. at 01/21/2017 1:49 PM BLM/pcl TD: 01/13/2017 11:09 JOB #: [id number] [facility] A Service of [facility] & [facility] / [facility] RADIOLOGY TEXT RESULTS PATIENT: YANELI ARCE LOCATION: [facility] 307-01 : [birth year] UNIT #: [id number] AGE: [address]: Eduardo Aldridge MD SEX: M ORDER DR: MEDICAL IMAGING REPORT Page 1 of 1 COPY
--- NOTE | ~2017-01-01 | EKG ---
PATIENT: YANELI ARCE UNIT #: [id number] Ventricular Rate: 83 BPM Atrial Rate: 83 BPM P-R Interval: 194 ms QRS Duration: 84 ms Q-T Interval: 354 ms QTC Calculation(Bezet): 415 ms P [place]: 61 degrees Calculated R [place]: -13 degrees Calculated T [place]: 14 degrees Diagnosis Line: Sinus rhythm with Fusion complexes Diagnosis Line: Inferior infarct (cited on or before 28-NOV-2010) Diagnosis Line: Abnormal ECG Diagnosis Line: When compared with ECG of 02-JAN-2017 06:00, Diagnosis Line: Fusion complexes are now Present Diagnosis Line: NJ interval has decreased Diagnosis Line: Confirmed by MARGARET GONZALES MD ([id number]) on Diagnosis Line: 01/11/2017 9:04:08 AM INTERPRETING MD: JANET DELGADO
--- NOTE | ~2017-01-01 | HP ---
Unit #: [id number] #: [id number] Patient: YANELI ARCE [id number] [address] [address] [id number] I MR#: [id number] NAME: YANELI ARCE ROOM: CICCU2 Age: 81 Sex: M Admission Date: 01/01/2017 : 1935 Attending Physician: Jax Gonzalez M.D. Primary Care Physician: Nancy Mosqueda M.D. HISTORY AND PHYSICAL REASON FOR ADMISSION Acute hypoxic respiratory failure. Mild mental status change. HISTORY OF PRESENT ILLNESS The patient is an 81-year-old male, long-term resident of jail who presented after staff had noted the patient had acute mental status changes, as well as was noted to be acutely hypoxic. The patient was recently admitted from late September 2016 to early October of 2016. At that point in time was admitted secondary to respiratory failure, poorly controlled diabetes and ultimately was transitioned to [place] and from [place] was discharged only several days ago to go back to long-term care. Apparently while he was residing at the jail over the past 24 to 48 hours per reports, the patient had mental status decline, as well as hypoxic issues and thus was transferred to the ER for further evaluation. Initial O2 saturations per EMS services were noted to be 66%. Presently, patient is currently in the ICU, intubated and no family members were present. PAST MEDICAL HISTORY 1. Recent hospital admission 09/2016 secondary to respiratory failure, mental status change. 2. Dysphagia with appropriate dietary modifications. 3. Prior history of CVA with residual left-sided weakness, prior history of hemorrhagic CVA, paroxysmal atrial fibrillation, COPD, hypertension, diabetes. I believe diastolic dysfunction. 4. Previous history of aspiration pneumonia. 5. Prior history of PEG tube placement, which was later removed. 6. Chronic urinary retention, status post Delvalle catheter. 7. BPH history. 8. MAC surgery now. 9. Chronic hip fracture. 10. Chronic immobility syndrome. 11. Chronic constipation/recurrent bowel obstruction and/or abdominal ileus issues. 12. Hiatal hernia. 13. Mild mitral and tricuspid regurgitation. 14. Likely diastolic dysfunction with estimated prior ejection fraction 60%. Unit #: [id number] #: [id number] Patient: YANELI ARCE SOCIAL HISTORY The [facility] jail. No alcohol. No tobacco. No illicit drugs. ALLERGIES No known drug allergies. HOME MEDICATIONS From previous discharge summary include Flomax, Lyrica, Seroquel, Coreg, pravastatin, clonidine, Levemir, low dose sliding scale, iron supplement, finasteride, Protonix, Haldol. FAMILY HISTORY Reviewed and noncontributory and nonpertinent given current condition. REVIEW OF SYSTEMS Unable to be obtained secondary to current state. No family members present. PHYSICAL EXAMINATION GENERAL: 81-year-old male currently in ICU, appears comfortable. HEENT: Head: Atraumatic and normocephalic. Ears: Tympanic membranes did not reveal erythema or injection. NECK: Supple. CARDIOVASCULAR: S1, S2 slightly tachycardic. No murmur heard. RESPIRATORY: Very poor air exchange noted bilaterally. GASTROINTESTINAL/ABDOMEN: Distention noted. Nontender. EXTREMITIES: Lower extremity contracted state. Cachetic lower extremity. DIAGNOSTIC STUDIES ADDITIONAL LABORATORY STUDIES: BNP 106, initial urinalysis positive. Ammonia level 33. BMP shows creatinine of 1.4, GFR 46. Hemoglobin 11.5, white count 11.8. IMAGING STUDIES: Initial chest x-ray as read by ER physician showing bilateral pleural effusion. Official report currently pending. CARDIOLOGY STUDIES: EKG shows normal sinus. INITIAL IMPRESSION 1. Acute hypoxic respiratory failure. 2. Hypotension. 3. Urinary tract infection. 4. Sepsis present on admission. 5. Prior cerebrovascular accident history. 6. Mental status change. 7. Left-sided weakness. 8. Bilateral pleural effusions, volume overload versus infectious etiology. 9. Chronic indwelling Delvalle catheter. PLAN 1. Admission to ICU. 2. [place] consulted, Dr. Andre. 3. Cardiac consult, Dr. Avila. 4. Broad spectrum IV antibiotics. Blood culture and urine culture pending. 5. Routine labs. 6. Symptom management. Unit #: [id number] #: [id number] Patient: YANELI ARCE 7. Currently no family members are present. In the past patient's has stated the patient would not like PEG tube placement. I am unsure about code status. Once family members arrive, this will be ascertained as well. Overall patient's long-term prognosis is guarded at this point in time. 8. Further hospital course to follow. Dictated by Catherine Grewal/lisandra TD: 01/01/2017 10:34 JOB #: [id number] HISTORY AND PHYSICAL Page 1 of 1 X Jax Gonzalez MD HISTORY AND PHYSICAL
--- NOTE | ~2017-01-01 | EKG ---
PATIENT: YANELI ARCE UNIT #: [id number] Ventricular Rate: 90 BPM Atrial Rate: 90 BPM P-R Interval: 240 ms QRS Duration: 84 ms Q-T Interval: 376 ms QTC Calculation(Bezet): 459 ms P [place]: 65 degrees Calculated R [place]: -8 degrees Calculated T [place]: 49 degrees Diagnosis Line: Sinus rhythm with 1st degree A-V block Diagnosis Line: Low voltage QRS Diagnosis Line: Inferior infarct , age undetermined Diagnosis Line: Possible Anterolateral infarct , age undetermined Diagnosis Line: Abnormal ECG Diagnosis Line: No previous ECGs available Diagnosis Line: Confirmed by SURYA DELUNA MD ([id number]) on 01/02/2017 Diagnosis Line: 3:00:09 PM INTERPRETING MD: REGI DELGADO
--- NOTE | ~2017-01-01 | CR72 ---
[facility] A Service of [facility] / [facility] RADIOLOGY TEXT RESULTS PATIENT: YANELI ARCE LOCATION: [address] : [birth year] UNIT #: [id number] AGE: [address]: Jax Gonzalez MD SEX: M ORDER DR: [id number] [facility] [address]. [place], [place] [address] [id number] I MR#: [id number] Acc #: [id number] NAME: YANELI ARCE : 1935 SEX: M STUDY DATE/TIME: 01/05/2017 5:33 UNIT: [facility] ROOM: [facility] STUDY DESCRIPTION: CR Chest Single View Portable Attending Physician: Jax Gonzalez M.D. Referring Physician: Ryne Hernandez M.D. Ordering Physician: Ryne Hernandez M.D. Primary Care Physician: Nancy Mosqueda M.D. MEDICAL IMAGING REPORT This report is preliminary unless electronic signature is present EXAM Chest x-ray portable. CLINICAL HISTORY Short of air, hypotension for 4 days, respiratory failure, tube placement. COMMENT Single frontal portable view of the chest timed 5:33, 01/05/2017. COMPARISON Compared to 01/04/2017. FINDINGS Endotracheal tube satisfactory. Nasogastric tube present tip not on film. Passes at least into the stomach. No change in the right IJ approach catheter. Mild cardiac silhouette enlargement. Lung volumes are low. Increased parenchymal markings most apparent at lung bases not appreciably changed. No pneumothorax. Cannot exclude some layering pleural fluid. IMPRESSION 1. No significant interval change in the appearance of the chest. Tubes and lines unchanged. Dictated by... Michell Bower M.D. THIS IS AN ELECTRONICALLY VERIFIED REPORT Michell Bower M.D. at 01/06/2017 7:18 AM SHRADDHA/yong TD: 01/05/2017 17:01 JOB #: [id number] [facility] A Service of [facility] RADIOLOGY TEXT RESULTS PATIENT: YANELI ARCE [facility] [birth year] UNIT #: [id number] AGE: [address]: Jax Gonzalez MD SEX: M ORDER DR: MEDICAL IMAGING REPORT Page 1 of 1 COPY
--- NOTE | ~2017-01-01 | OR ---
Unit #: [id number] #: [id number] Patient: YANELI ARCE [id number] [facility] [place] [facility]. [place], [place] [address] [id number] I MR#: [id number] NAME: YANELI ARCE ROOM: [facility] Date of Procedure: 01/16/2017 Admission Date: 01/01/2017 Surgeon: Kenneth Michel M.D. : 1935 Attending Physician: Emilie Levine M.D. Primary Care Physician: Nancy Mosqueda M.D. OPERATIVE REPORT PREOPERATIVE DIAGNOSES Aspiration pneumonia and dysphagia. POSTOPERATIVE DIAGNOSES Aspiration pneumonia and dysphagia. PROCEDURE PERFORMED Esophagogastroduodenoscopy with percutaneous endoscopic gastrostomy tube placement. ANESTHESIA Monitored anesthesia. ESTIMATED BLOOD LOSS Less than 10 mL. INDICATIONS FOR PROCEDURE An 81-year-old gentleman in the intensive care unit with aspiration pneumonia, also demonstrates dysphagia. Feeding tube has been requested for ongoing management. DESCRIPTION OF PROCEDURE The patient was seen in the intensive care unit. He was already appropriately managed. After appropriate positioning and a bite block being placed, he was sedated by the anesthesiologist. The endoscope was passed through the oral cavity in the esophagus. Under direct vision, we passed through the esophagus into the stomach, insufflated the stomach, and passed through the pylorus down the second and third portion of the duodenum. On antegrade visualization, no abnormalities were noted. As I brought the scope back into the stomach, I palpated and transilluminated position for the PEG. Anterior abdominal wall was prepped and draped in usual sterile fashion. Local anesthetic was infiltrated. A stab incision was made and the introducer needle was passed under direct vision into the lumen of the stomach. The introducer sheath was grasped with a snare and then, the guidewire was passed and grasped. The guidewire was brought out through the oral cavity using the endoscope. Gastrostomy tube was passed over the guidewire and out through the anterior abdominal wall in usual fashion. The endoscope was passed over the guidewire back into the stomach and I photodocumented the position of the PEG. It was well positioned with no bleeding. On retrograde visualization, no other abnormalities were noted, but the larynx was not well visualized. The bumper, clamp and endpiece were placed on the gastrostomy tube. The stoma Unit #: [id number] #: [id number] Patient: YANELI ARCE site was dressed with triple antibiotic ointment and a sponge. The tube was then secured underneath a dressing with silk tape and abdominal binder has been ordered. Sponges and needle counts were correct x3. The patient was left in the intensive care unit with appropriate monitoring. Findings were discussed with his . Orders have been written for his tube feeds and medications. Dictated by... Catherine Chen/ranjit TD: 01/17/2017 04:41 JOB #: [id number] OPERATIVE REPORT Page 1 of 1 X Kenneth Michel MD X PROCEDURE OPERATIVE NOTE
--- NOTE | ~2017-01-01 | A ---
[facility] Nutrition Therapy DATE: 01/01/17 Patient: YANELI ARCE Physician: ROGER Address: [address] Room/Bed: [address], Zip: [place] [address] Admit Date: 01/01/17 Date of : 33 Height: 6 2 Weight: 192 87.5 NUTRITIONAL ASSESSMENT: REASON: NPO IN ICU ASSESSMENT, PT INTUBATED PT IS 81 Y.O. MALE ADMITTED FOR SEPSIS, ALTERED MENTAL STATUS PMH: CVA W/DYSPHAGIA, RESP FAILURE, T2DM, GERD, AFIB, ASPIRATION PNA, COPD, HTN, CAD, UTI, S/P PEG PLACEMENT AND REMOVAL Anthropometrics: 5'11" (PER FAMILY), WT: 192# (PER FAMILY) (87 KG), BMI: 26.8 Labs: GLU: 241, NA+:134, CA+:8.2, ALB: 2.7, GFR: 46.2 Meds: PROTONIX, SOLU-MEDROL, NACL I/O & Bowel function: NOT AVAILABLE AT THIS TIME Skin Integrity: PRESSURE ULCER COCCYX Estimated Nutrition Needs: 8303-2652 KCAL (24-28 KCAL/KG BW) 95-113 G PRO (1.1-1.3 G PRO/KG BW) FLUIDS CONSISTENT W/KCAL NEEDS OR MANAGE PER MD Assessment: CHART REVIEWED AND EVENTS NOTED. PT SEEN FOR NPO IN ICU ASSESSMENT. PT CURRENTLY INTUBATED AT TIME OF VISIT. PT TRANSFERRED TO ICU 01/01/17 AM FROM [place] FOR ABOVE DX. FAMILY AT BEDSIDE REPORTS PT TO HAVE DECREASED PO INTAKE 2' DECREASED APPETITE PAST SEVERAL WEEKS. FAMILY UNABLE TO IDENTIFY ANY RECENT WEIGHT LOSS. PER [employer], WEIGHT LOSS NOTED SINCE 2013. PER RN AND CHART, NO CURRENT PLANS IN PLACE FOR ALTERNATIVE NUTRITION SUPPORT AT THIS TIME. RD TO FOLLOW. SEE RECOMMENDATIONS BELOW. OF NOTE, PT WAS RECEIVING MECHANICAL SOFT + NECTAR THICK LIQUIDS AT [place] PRIOR TO ADMIT. Dx: INADEQUATE ORAL INTAKE R/T CURRENT DIAGNOSIS, VENT DEPENDENCE, PRIOR DECREASED APPETITE AEB NPO STATUS. Intervention: 1. NPO Monitoring, Evaluation and Goals: 1. ENTERAL NUTRITION; ONCE INITIATED, PROVIDE >80% ESTIMATED TOTAL VOLUME X 24 HOURS 2. WEIGHTS; PREVENT FURTHER WEIGHT LOSS; PRESERVE LEAN BODY MASS 3. LABS; WNL: GLU, NA+ 4. GI; PROMOTE REGULAR GI FUNCTION [facility] Nutrition Therapy DATE: 01/01/17 Patient: YANELI ARCE Physician: ROGER Address: [address] Room/Bed: [address], Zip: [place] [address] Admit Date: 01/01/17 Date of : 33 Height: 6 2 Weight: 192 87.5 MONITOR: -WEIGHTS -PLANS FOR SUPPORT -EXTIUBATION -LABS Recommendations: 1. PLEASE OBTAIN UPDATED A1c TO FURTHER ASSESS DM MANAGEMENT 2. ONCE MEDICALLY FEASIBLE AND PT EXTUBATED, ADVANCE DIET PER PAPER HANGER EVAL + PRIOR ALFONZO DIET (MECHANICAL SOFT + NECTAR THICK LIQUID DIET) 3. IF PT REMAINS INTUBATED >24 HOURS, RECOMMEND TO BEGIN ALTERNATIVE NUTRITION SUPPORT OF GLUCERNA 1.5 @ 20 ML/HR, ADVANCE 10 ML q 6 HOURS TO GOAL RATE OF 55 ML/HR -PROVIDES 1980 KCAL, 108 G PRO, 1003 ML FREE H20 ADD FREE H20 FLUSHES PER RD WILL F/U PER PROTOCOL PT IS SEVERELY COMPROMISED Respectfully, YESICA WALSH MS, RD, LD Food and Nutritional Services [facility] cc: client file
--- NOTE | ~2017-01-01 | CO ---
Unit #: [id number] #: [id number] Patient: YANELI ARCE [id number] [facility]. [id number] [facility]. [place], [place] [address] [id number] I MR#: [id number] NAME: YANELI ARCE ROOM: [facility]2 Age: 81 Sex: M Admission Date: 01/01/2017 : 1935 Attending Physician: Jax Gonzalez M.D. Primary Care Physician: Nancy Mosqueda M.D. Consultation Date: 01/01/2017 CONSULTATION REPORT DICTATED FOR Dr. Freeman Avila, [facility]. REASON FOR CONSULTATION Shortness of breath and respiratory failure. HISTORY OF PRESENT ILLNESS The patient is an 81-year-old white male, who has been seen by our group in the past. He has a history of atrial fibrillation with RVR; coronary artery disease; although, is unsure of any details of this; hypertension; hyperlipidemia; diabetes; two strokes, last one was in 2010, one stroke with an intracranial hemorrhage while he was on anticoagulation; COPD; recurrent respiratory failure and recurrent urinary tract infections, both with sepsis hospitalizations. Most of history is obtained from the and chart review. states that the patient was here in 09/2016 to 10/2016 for pneumonia, where he had trouble with his oxygen saturations, therefore he was sent to [place] where he remained for 7 weeks. The patient then transitioned to [facility] last Saturday. The patient states that he has been doing okay up until yesterday evening where he was short of breath and sort out of it. He also had a cough with white mucus production. She states that he never did complain of any chest pain, pressure, or tightness. No nausea, vomiting, diarrhea, fevers, or chills. No lightheadedness or passing out episodes. The patient also has a history of BPH, status post TURP, but he has had a urinary catheter for the last two years. The patient did eat what sounds like mechanical ground foods at the long term with honey thick liquids and there were no signs of choking or aspiration with his meals according to his . Last echo was in 2013, was a technically difficult study with EF was reported to be greater than 55% with no valvular abnormalities noted. According to the , the patient has never had a cardiac cath or required any kind of stent for any coronary artery disease. Cardiology was consulted for further evaluation with the shortness of breath and respiratory failure to determine if any of that was cardiac related. PAST MEDICAL HISTORY 1. Coronary artery disease. 2. Hypertension. 3. Hyperlipidemia. 4. Diabetes. 5. Atrial fibrillation with RVR. Unit #: [id number] #: [id number] Patient: YANELI ARCE 6. History of stroke x2, one of which was intracranial hemorrhage, on anticoagulation. 7. COPD. 8. Recurrent episodes of pneumonia and sepsis. 9. Recurrent episodes of urinary tract infection with sepsis requiring hospitalization. PAST SURGICAL HISTORY 1. PEG tube placement with removal. 2. BPH, status post TURP. 3. Back surgery. 4. Bilateral lower extremity vein stripping. SOCIAL HISTORY The patient was a smoker of one pack per day for many years, but quit 35 years ago. Denies any alcohol abuse or other illicit drug abuse according to the . FAMILY HISTORY There is some family history of coronary artery disease. is unsure of the details. HOME MEDICATIONS There is no home medications listed on the chart, therefore unable to verify what medications the patient was taking at home. REVIEW OF SYSTEMS Unable to obtain from the patient. PHYSICAL EXAMINATION GENERAL: This is an 81-year-old white male, who is intubated and sedated. VITAL SIGNS: Blood pressure 101/69, temp 97.9, pulse 83, respirations 23. HEENT: Pupils are equal, round, and reactive. Oral mucosa is moist. ET tube is present. NECK: Right IJ. No lymphadenopathy. No carotid bruits. No JVD. HEART: S1 and S2. Regular rate and rhythm. No S3 or S4. No clicks, no rubs, no murmurs. LUNGS: Rhonchi and diminished in the bases. Few rales at right base. Left lung clear. ABDOMEN: Soft. Bowel sounds are absent. Nontender and nondistended. EXTREMITIES: No swelling noted. NEUROLOGICAL: Unable to assess. DIAGNOSTIC STUDIES LABORATORY RESULTS: Includes laboratory studies; white count 11.8, hemoglobin 11.5, hematocrit 36, platelets 307. Lactic 0.6. Sodium 134, potassium 4.4, chloride 101, CO2 of 30, glucose 241, BUN 23, creatinine 1.4, GFR is 46.2, ammonia 33. BNP 106. UA showed positive leukocytes and positive nitrites as well as 3+ protein, blood, and yeast. Cultures pending. Troponin less than 0.05. ABG; pH was 7.377, pCO2 of 44.6, pO2 64.5, bicarb 26.2 and this is on 100% FiO2 via the vent. CARDIOVASCULAR STUDIES: EKG showed sinus rhythm with a first-degree AV block as well as an old inferolateral wall FL. IMAGING STUDIES: Chest x-ray; haziness in the right lower lung. ASSESSMENT Unit #: [id number] #: [id number] Patient: YANELI ARCE 1. Respiratory failure, likely secondary to pneumonia. 2. 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 3. Old cerebrovascular accident. 4. No clinical findings of congestive heart failure. PLAN We will plan to continue treatment for pneumonia, chronic obstructive pulmonary disease, and possible underlying infection. No new cardiac workup will be planned. We will plan to rule out an acute myocardial infarction with cardiac enzymes today and tomorrow, as well as recheck an EKG in the morning. Dictated by... DRU Ching TD: 01/01/2017 16:53 JOB #: [id number] CONSULTATION REPORT Page 1 of 1 X X CONSULTATION REPORT
--- NOTE | ~2017-01-01 | FU ---
[facility] Nutrition Therapy DATE: 01/04/17 Patient: YANELI ARCE Physician: ROGER Address: [address] Room/Bed: [address], Zip: [place] [address] Admit Date: 01/01/17 Date of : 33 Height: 6 2 Weight: 220 99.8 NUTRITION MONITORING/FOLLOW-UP: Reason: PT SEEN FOR FOLLOW-UP/ENTERAL NUTRITION SUPPORT DX: RESP DISTRESS, AMS, SEPSIS Anthropometrics: 5'11", WT: 206# (94 KG), BMI: 28.7 -ADMIT WEIGHT: 192# Labs: GLU: 149, BUN: 41, CA+:7.9, ALB: 2.1, GFR: 50.5 Meds: FENTANYL, LEVEMIR, VERSED, NOVOLOG, SENOKOT, LIPITOR, PROTONIX, SOLU-MEDROL I&O's: 5121/5853 Skin: STAGE 2 PRESSURE ULCER LOCATED COCCYX EDEMA: BLE 1+ EDEMA; BUE TRACE EDEMA Estimated Nutrition Needs: 3711-0700 KCAL 95-113 G PRO Assessment: CHART REVIEWED AND EVENTS NOTED. PT SEEN ENTERAL NUTRITION SUPPORT FOLLOW-UP. PT CONTINUES TO BE INTUBATED AND SEDATED AT TIME OF VISIT RECEIVING ALTERNATIVE NUTRITION SUPPORT OF GLUCERNA 1.5 @ 55 ML/HR. PER RN AND CHART, PT TOLERATING EN, NOTING NO ISSUES. PER PUMP HISTORY, PT RECEIVING ~94% TOTAL VOLUME PAST 24 HOURS. FAMILY IN ROOM REPORTED NO DIET QUESTIONS AT THIS TIME. RD TO CONTINUE TO FOLLOW. Dx: INADEQUATE ORAL INTAKE R/T CURRENT DIAGNOSIS, VENT DEPENDENCE, PRIOR DECREASED APPETITE AEB NPO STATUS.-RESOLVED/ACTIVE NEW Dx: INADEQUATE ORAL INTAKE R/T CURRENT DIAGNOSIS, VENT DEPENDENCE, PRIOR DECREASED APPETITE AEB PT RECEIVING ENTERAL NUTRITION SUPPORT. Intervention: 1. ENTERAL NUTRITION SUPPORT OF GLUCERNA 1.5 Monitoring, Evaluation and Goals: 1. ENTERAL NUTRITION; PROVIDE >80% TOTAL VOLUME AT GOAL x 24 HOURS-MET/IN PROGRESS 2. WEIGHTS; PROMOTE WEIGHT MAINTENANCE; PREVENT WEIGHT LOSS-IN PROGRESS 3. LABS; GLU, NA+ -IN PROGRESS/MET 4. GI; PROMOTE REGULAR GI FUNCTION-IN PROGRESS NEW GOALS: 1. SKIN; PROMOTE SKIN HEALING [facility] Nutrition Therapy DATE: 01/04/17 Patient: YANELI ARCE Physician: ROGER Address: [address] Room/Bed: [address], Zip: [place] [address] Admit Date: 01/01/17 Date of : 33 Height: 6 2 Weight: 220 99.8 MONITOR: -TF RATE/RESIDUALS -WEIGHTS -LABS -EXTUBATION Recommendations: 1. PLEASE OBTAIN CURRENT/UPDATED A1c TO BETTER ASSESS DM MANAGEMENT 2. CONTINUE CURRENT ENTERAL NUTRITION SUPPORT OF GLUCERNA 1.5 @ 55 ML/HR CONTINUE FREE H20 FLUSHES PER MD 3. ONCE PT EXTUBATED, ADVANCE DIET PER BURN NURSE + CC + PRIOR DIET OF MECHANICAL SOFT + NECTAR THICK LIQUID RD WILL F/U PER PROTOCOL PT IS MOD/SEVERELY COMPROMISED Respectfully, YESICA WALSH MS, RD, LD Food and Nutritional Services [facility] cc: client file
--- NOTE | ~2017-01-01 | CR72 ---
[facility] A Service of [facility] & [facility] RADIOLOGY TEXT RESULTS PATIENT: YANELI ARCE LOCATION: [address]08 : [birth year] UNIT #: [id number] AGE: [address]: Jax Gonzalez MD SEX: M ORDER DR: [id number] [facility] [address]. [place], [place] [address] [id number] I MR#: [id number] Acc #: [id number] NAME: YANELI ARCE : 1935 SEX: M STUDY DATE/TIME: 01/01/2017 8:34 UNIT: [facility] ROOM: [facility] STUDY DESCRIPTION: CR Chest Single View Portable Attending Physician: Jax Gonzalez M.D. Ordering Physician: Ed Won Swartz M.D. Primary Care Physician: Nancy Mosqueda M.D. MEDICAL IMAGING REPORT This report is preliminary unless electronic signature is present EXAM Portable chest HISTORY Central line placement, shortness of air onset today. History of brain tumor. COMPARISON 01/01/2017 at 0344 hours FINDINGS Interval placement of a right neck-approach central line, distal tip mid SVC. Endotracheal tube remains in satisfactory position. Continued low lung volumes with bibasilar atelectasis, mild pulmonary vascular congestion and interstitial prominence. Heart and mediastinum unremarkable except for aortic atherosclerotic changes. No sizable effusions or pneumothorax. Dictated by... Chapo Jesus M.D. THIS IS AN ELECTRONICALLY VERIFIED REPORT Chapo Jesus M.D. at 01/02/2017 12:29 PM Arjun TD: 01/01/2017 22:15 JOB #: [id number] MEDICAL IMAGING REPORT Page 1 of 1 COPY
--- NOTE | ~2017-01-01 | FU ---
[facility] Nutrition Therapy DATE: 01/14/17 Patient: YANELI ARCE Physician: ROGER Address: [address] Room/Bed: [address], Zip: [place] [address] Admit Date: 01/01/17 Date of : 33 Height: 6 2 Weight: 198 90 NUTRITION MONITORING/FOLLOW-UP: Reason: PT SEEN FOR FOLLOW-UP/ENTERAL NUTRITION SUPPORT DX: RESP DISTRESS, SEPSIS, AMS Anthropometrics: 5'11", WT: 198# (90 KG), BMI: 27.6 -WEIGHTS HAVE RANGED 192-46# SINCE ADMIT Labs: GLU: 246, BUN: 25, CA+:8.1, ALB: 2.3 Meds: LEVEMIR, NOVOLOG, SENOKOT, LIPITOR, PROTONIX, SOLU-MEDROL, COREG, ZOSYN, MIRALAX I&O's: 2956/2717, 2 BMs NOTED Skin: RASH NOTED BILATERAL FEET; STAGE 2 PRESSURE ULCER COCCYX (PREVIOUSLY NOTED) EDEMA: BLE/BUE/ABD TRUNK GENERAL EDEMA Estimated Nutrition Needs: [phone] KCAL 95-113 G PRO Assessment: CHART REVIEWED AND EVENTS NOTED. PT SEEN FOR ENTERAL NUTRITION SUPPORT FOLLOW-UP. PT ASLEEP ON NASAL CANNULA RECEIVING ENTERAL NUTRITION SUPPORT OF GLUCERNA 1.5 @ 55 ML/HR. PER RN AND CHART, PT TOLERATING EN, NOTING NO ISSUES. PER RN AND CHART, ?PEG PLACEMENT, ENTERAL NUTRITION WAS ON HOLD EARLY THIS AM 2' LSA CONSULT. (PER PUMP HISTORY, PT RECEIVING ~55% TOTAL VOLUME PAST [address] RD NOTED PT TO BE COMBATIVE, CONFUSED AND AGITATED THIS AM. FAMILY AT BEDSIDE REPORTED NO DIET QUESTIONS AT THIS TIME. RD TO CONTINUE TO FOLLOW. Dx: INADEQUATE ORAL INTAKE R/T CURRENT DIAGNOSIS, VENT DEPENDENCE, PRIOR DECREASED APPETITE AEB ENTERAL NUTRITION SUPPORT.-ACTIVE/RESOLVED NEW Dx: INADEQUATE ORAL INTAKE R/T CURRENT DIAGNOSIS, CURRENT CLINICAL CONDITION AEB ENTERAL NUTRITION SUPPORT IN PLACE. Intervention: 1. ENTERAL NUTRITION SUPPORT OF GLUCERNA 1.5 Monitoring, Evaluation and Goals: 1. ENTERAL NUTRITION; TOLERATE >80% TOTAL VOLUME X 24 HOURS-NOT MET/IN PROEGRESS 2. WEIGHTS; PROMOTE WEIGHT MAINTENANCE, PREVENT WEIGHT LOSS-IN PROGRESS 3. LABS; GLU, NA+-IN PROGRESS (NOT IMPROVED) 4. GI; PROMOTE REGULAR GI FUNCTION-NOT MET 5. SKIN; PREVENT FURTHER SKIN BREAKDOWN-IN PROGRESS [facility] Nutrition Therapy DATE: 01/14/17 Patient: YANELI ARCE Physician: ROGER Address: [address] Room/Bed: [address], Zip: [place] [address] Admit Date: 01/01/17 Date of : 33 Height: 6 2 Weight: 198 90 MONITOR: -WEIGHTS -TF RATE/RESIDUALS -BLANKING MACHINE OPERATOR? -LABS Recommendations: 1. CONTINUE CURRENT ENTERAL NUTRITION SUPPORT OF GLUCERNA 1.5 @ 55 ML/HR X 24 HOURS 2. PLEASE OBTAIN CURRENT/UPDATED A1c TO BETTER ASSESS DM MANAGEMENT 3. ONCE FEASIBLE, ADVANCE DIET PER BLANKING MACHINE OPERATOR EVAL + CC+ MECHANICAL SOFT + NECTAR THICK LIQUID DIET (PRIOR ICU DIET ADMIT) RD WILL F/U PER PROTOCOL PT IS MOD/SEVERELY COMPROMISED Respectfully, YESICA WALSH MS, RD, LD Food and Nutritional Services [facility] cc: client file
--- NOTE | ~2017-01-01 | CR72 ---
[facility] A Service of [facility] & [facility] RADIOLOGY TEXT RESULTS PATIENT: YANELI ARCE LOCATION: [address]08 : [birth year] UNIT #: [id number] AGE: [address]: Jax Gonzalez MD SEX: M ORDER DR: [id number] [facility] [address] [facility]. [place], [place] [address] [id number] I MR#: [id number] Acc #: [id number] NAME: YANELI ARCE : 1935 SEX: M STUDY DATE/TIME: 01/08/2017 6:11 UNIT: [facility] ROOM: [facility] STUDY DESCRIPTION: CR Chest Single View Portable Attending Physician: Jax Gonzalez M.D. Ordering Physician: Liana Giordano M.D. Primary Care Physician: Nancy Mosqueda M.D. MEDICAL IMAGING REPORT This report is preliminary unless electronic signature is present EXAM Portable chest one-view, 01/08/2017 CLINICAL HISTORY Respiratory failure. Symptoms for about 1 week. COMPARISON Prior chest radiographs most recent dated 01/06/2017. FINDINGS Slight decrease in interstitial infiltrate since the prior study though left retrocardiac consolidation remains as do low lung volumes. ET tube present tip 4.0 cm above the dell. NG tube and right IJ central line remain in place. Dictated by... Casey Cowart M.D. THIS IS AN ELECTRONICALLY VERIFIED REPORT Casey Cowart M.D. at 01/09/2017 10:24 AM MARIELA/louie TD: 01/08/2017 14:19 JOB #: [id number] MEDICAL IMAGING REPORT Page 1 of 1 COPY
--- NOTE | ~2017-01-01 | CR72 ---
[facility] A Service of [facility] & [facility] RADIOLOGY TEXT RESULTS PATIENT: YANELI ARCE LOCATION: [facility] 307- : [birth year] UNIT #: [id number] AGE: [address]: Eduardo Aldridge MD SEX: M ORDER DR: [id number] [facility] [address] [place], [place] [address] [id number] I MR#: [id number] Acc #: [id number] NAME: YANELI ARCE : 1935 SEX: M STUDY DATE/TIME: 01/21/2017 14:27 UNIT: A U ROOM: [facility] STUDY DESCRIPTION: CR Chest Single View Portable Attending Physician: Eduardo Aldridge M.D. Ordering Physician: Liana Giordano M.D. Primary Care Physician: Nancy Mosqueda M.D. MEDICAL IMAGING REPORT This report is preliminary unless electronic signature is present EXAM Portable chest x-ray, 01/21/2017 HISTORY Pneumonia. Respiratory distress couple weeks duration. Atrial fibrillation. Diabetes, cerebrovascular accident. FINDINGS AP radiograph of the chest is presented. Comparison 01/14/2017. Interval removal of enteric tube and right internal jugular central venous catheter. No acute bony abnormality. Cardiomediastinal contours stable. Lung volumes remain low. Central bronchovascular crowding. Airspace disease bilateral lower lung zones stable on the left and increased on the right. Small bilateral pleural effusions new on the right and stable on the left. Relatively dense opacification at the left lung base likely due to both pleural effusion and airspace disease. The appearance of the lungs is somewhat nonspecific. Bilateral pneumonia is a consideration with worsening on the right. Some components of bibasilar atelectasis may be present. Some components of edema could be present. There is no pneumothorax. Dictated by... Iván Dumont M.D. THIS IS AN ELECTRONICALLY VERIFIED REPORT Iván Dumont M.D. at 01/22/2017 6:45 PM Jose Rafael TD: 01/22/2017 02:30 JOB #: [id number] [facility] A Service of [facility] & [facility] RADIOLOGY TEXT RESULTS PATIENT: YANELI ARCE LOCATION: A 307-01 : 33 UNIT #: [id number] AGE: [address]: Eduardo Aldridge MD SEX: M ORDER DR: MEDICAL IMAGING REPORT Page 1 of 1 COPY
--- NOTE | ~2017-01-01 | CR72 ---
[facility] A Service of [facility] & [facility] RADIOLOGY TEXT RESULTS PATIENT: YANELI ARCE LOCATION: [address] : [birth year] UNIT #: [id number] AGE: [address]: Jax Gonzalez MD SEX: M ORDER DR: [id number] [facility] [address] [facility]. [place], [place] [address] [id number] I MR#: [id number] Acc #: [id number] NAME: YANELI ARCE : 1935 SEX: M STUDY DATE/TIME: 01/01/2017 14:39 UNIT: [facility] ROOM: [facility] STUDY DESCRIPTION: CR Chest Single View Portable Attending Physician: Jax Gonzalez M.D. Ordering Physician: Ed Won Swartz M.D. Primary Care Physician: Nancy Mosqueda M.D. MEDICAL IMAGING REPORT This report is preliminary unless electronic signature is present EXAM Portable chest HISTORY Dobbhoff tube placement, evaluate for possible pneumothorax. COMPARISON 01/01/2017 at 0834 hours. FINDINGS AP portable view of the chest demonstrates low lung volumes. Bibasilar atelectasis and diffuse haziness over both lungs may represent a combination of interstitial and alveolar edema. Probable trace right pleural effusion. Right neck approach central line terminates mid SVC. Apparent endotracheal tube in place. No definite pneumothorax. Dictated by... Chapo Jesus M.D. THIS IS AN ELECTRONICALLY VERIFIED REPORT Chapo Jesus M.D. at 01/02/2017 12:32 PM Chantelle TD: 01/02/2017 02:05 JOB #: [id number] MEDICAL IMAGING REPORT Page 1 of 1 COPY
--- NOTE | ~2017-01-01 | CR7 ---
[facility] A Service of [facility] & [facility] RADIOLOGY TEXT RESULTS PATIENT: YANELI ARCE LOCATION: [address] : [birth year] UNIT #: [id number] AGE: [address]: Fina Peterson MD SEX: M ORDER DR: [id number] [facility] [address]. [place], [place] [address] [id number] I MR#: [id number] Acc #: [id number] NAME: YANELI ARCE : 1935 SEX: M STUDY DATE/TIME: 01/11/2017 09:11 UNIT: [facility] ROOM: [facility] STUDY DESCRIPTION: CR Abdomen Single AP View Attending Physician: Fina Peterson M.D. Ordering Physician: Liana Giordano M.D. Primary Care Physician: Nancy Mosqueda M.D. MEDICAL IMAGING REPORT This report is preliminary unless electronic signature is present EXAM Abdomen one-view 01/11/2017 0911 hours CLINICAL HISTORY Dobbhoff tube patient 2 step today. COMPARISON 01/01/2017 and earlier chest film. FINDINGS The tip of the Dobbhoff tube is at the GE junction. There is a nasogastric tube with tip at or near the pylorus. Suggest advancing the Dobbhoff tube additional 10 cm. Visualized bowel gas pattern is unremarkable. IMPRESSION Limited film of the abdomen demonstrates advancement of the Dobbhoff tube with tip now at the GE junction. Suggest advancing additional 10 cm. Dictated by... Alina Pringle M.D. THIS IS AN ELECTRONICALLY VERIFIED REPORT Alina Pringle M.D. at 01/11/2017 2:31 PM TYSHAWN/juan TD: 01/11/2017 12:43 JOB #: [id number] MEDICAL IMAGING REPORT Page 1 of 1 COPY
--- NOTE | ~2017-01-01 | CR6 ---
[facility] A Service of [facility] & [facility] RADIOLOGY TEXT RESULTS PATIENT: YANELI ARCE LOCATION: [address] : 33 UNIT #: [id number] AGE: [address]: Jax Gonzalez MD SEX: M ORDER DR: [id number] [facility] [address]. [place], [place] [address] [id number] I MR#: [id number] Acc #: [id number] NAME: YANELI ARCE : 1935 SEX: M STUDY DATE/TIME: 01/01/2017 14:34 UNIT: [facility] ROOM: [facility] STUDY DESCRIPTION: CR Abdomen Portable Sng View Attending Physician: Jax Gonzalez M.D. Ordering Physician: Ed Won Swartz M.D. Primary Care Physician: Nancy Mosqueda M.D. MEDICAL IMAGING REPORT This report is preliminary unless electronic signature is present EXAM Single-view abdomen HISTORY Dobbhoff tube placement. COMPARISON 10/21/2016 FINDINGS Two portable views of the abdomen submitted. Examination demonstrates a Dobbhoff catheter extending through the mediastinum with the distal tip in the left upper quadrant, distal tip at or just below the GE junction. It is difficult to confirm that this is truly intragastric. If there were no problems placing the catheter to this position, further advancement of 10-15 cm is recommended for confirmation of more optimal positioning within the stomach. Diffuse pulmonary changes suggest background fibrosis and interstitial disease. Mild air-distension of the stomach, small and large bowel. Dictated by... Chapo Jesus M.D. THIS IS AN ELECTRONICALLY VERIFIED REPORT Chapo Jesus M.D. at 01/02/2017 12:32 PM THERON/james TD: 01/02/2017 02:02 JOB #: [id number] MEDICAL IMAGING REPORT Page 1 of 1 COPY
--- NOTE | ~2017-01-01 | CR72 ---
[facility] A Service of [facility] & [facility] RADIOLOGY TEXT RESULTS PATIENT: YANELI ARCE LOCATION: [address] : 33 UNIT #: [id number] AGE: [address]: Emilie Levine MD SEX: M ORDER DR: [id number] [facility] [address] [facility]. [place], [place] [address] [id number] I MR#: [id number] Acc #: [id number] NAME: YANELI ARCE : 1935 SEX: M STUDY DATE/TIME: 01/14/2017 2:28 UNIT: [facility] ROOM: [facility] STUDY DESCRIPTION: CR Chest Single View Portable Attending Physician: Emilie Levine M.D. Ordering Physician: Parth Andre M.D. Primary Care Physician: Nancy Mosqueda M.D. MEDICAL IMAGING REPORT This report is preliminary unless electronic signature is present EXAM Portable chest INDICATION Respiratory failure for the past 13 days. Followup. PROCEDURE Frontal view chest. COMPARISON 01/13/2017. FINDINGS Heart size unchanged. Persistent left basilar opacity. No new dense consolidation or pneumothorax. IMPRESSION Stable. Dictated by... Jorge Mendoza M.D. THIS IS AN ELECTRONICALLY VERIFIED REPORT Jorge Mendoza M.D. at 01/14/2017 10:02 PM ROMAINE/juan TD: 01/14/2017 10:16 JOB #: [id number] MEDICAL IMAGING REPORT Page 1 of 1 COPY
--- NOTE | ~2017-01-01 | CR72 ---
[facility] A Service of [facility] & [facility] RADIOLOGY TEXT RESULTS PATIENT: YANELI ARCE LOCATION: [address] : 33 UNIT #: [id number] AGE: [address]: Fina Peterson MD SEX: M ORDER DR: [id number] [facility] [address]. [place], [place] [address] [id number] I MR#: [id number] Acc #: [id number] NAME: YANELI ARCE : 1935 SEX: M STUDY DATE/TIME: 01/11/2017 UNIT: [facility] ROOM: [facility] STUDY DESCRIPTION: CR Chest Single View Portable Attending Physician: Fina Peterson M.D. Ordering Physician: Liana Giordano M.D. Primary Care Physician: Nancy Mosqueda M.D. MEDICAL IMAGING REPORT This report is preliminary unless electronic signature is present EXAM Chest portable 01/11/2017 09:09 hours HISTORY Dobbhoff tube placement today. COMPARISON 01/11/2017 FINDINGS Portable upright chest demonstrates a nasogastric tube visualized at least to the distal stomach with tip not included in the field of view. There is a second tube paralleling the nasogastric tube with tip above the level of the dell. If this represents the second feeding tube, this is at least 17 cm above the GE junction and should be advanced an additional 25-30 cm. The right IJ catheter tip is in the SVC. There is stable bibasilar density, likely atelectasis. No pneumothorax. IMPRESSION 1. There is an enteric tube in the stomach with tip directed rightward but not included in the field of view. It extends at least to the mid body of the stomach. There is a second tube paralleling the a nasogastric tube with tip in the esophagus above the level of the dell. It is at least 17 cm above the GE junction, and the tube should be advanced about 25-30 cm from its current position. 2. Persistent bibasilar density, likely atelectasis. No pneumothorax seen. Dictated by... Alina Pringle M.D. THIS IS AN ELECTRONICALLY VERIFIED REPORT [facility] A Service of [facility] & [facility] RADIOLOGY TEXT RESULTS PATIENT: YANELI ARCE LOCATION: [facility]2-08 : 33 UNIT #: [id number] AGE: [address]: Fina Peterson MD SEX: M ORDER DR: Alina Pringle M.D. at 01/11/2017 2:31 PM TYSHAWN/gemma TD: 01/11/2017 12:43 JOB #: [id number] MEDICAL IMAGING REPORT Page 1 of 1 COPY
--- NOTE | ~2017-01-01 | DS ---
Unit #: [id number] #: [id number] Patient: YANELI ARCE [id number] [address] [address] [id number] I MR#: [id number] NAME: YANELI ARCE ROOM: [facility] Age: 81 Sex: M Admission Date: 01/01/2017 : 1935 Discharge Date: Attending Physician: Emilie Levine M.D. Primary Care Physician: Nancy Mosqueda M.D. DISCHARGE SUMMARY ADDENDUM The patient remained critically sick in the ICU. His oxygen was gradually decreased. After discussing with the patient's daughter, it was decided to place a PEG tube, which was placed by Dr. Michel on 01/16. The patient was transferred to telemetry. I have discussed extensively with the patient's and his daughter who is an oncology nurse in [place]. Unfortunately, they have unrealistic expectations. The patient is currently on telemetry, and the patient's further care will be dictated by my partner. Dictated by... Catherine Clemente TD: 01/20/2017 13:50 JOB #: [id number] DISCHARGE SUMMARY Page 1 of 1 X Emilie Levine MD DISCHARGE SUMMARY
--- NOTE | ~2017-01-01 | CR72 ---
[facility] A Service of [facility] RADIOLOGY TEXT RESULTS PATIENT: YANELI ARCE LOCATION: [address] : 33 UNIT #: [id number] AGE: [address]: Jax Gonzalez MD SEX: M ORDER DR: [id number] [facility] [address] [facility]. [place], [place] [address] [id number] I MR#: [id number] Acc #: [id number] NAME: YANELI ARCE : 1935 SEX: M STUDY DATE/TIME: 01/01/2017 3:44 UNIT: [facility] ROOM: [facility] STUDY DESCRIPTION: CR Chest Single View Portable Attending Physician: Jax Gonzalez M.D. Ordering Physician: Roe Huerta M.D. Primary Care Physician: Nancy Mosqueda M.D. MEDICAL IMAGING REPORT This report is preliminary unless electronic signature is present EXAM Single view chest INDICATIONS Shortness of air. Respiratory failure. Hypertension. FINDINGS Single portable AP view of the chest compared to 12/13/2016. Endotracheal tube is positioned approximately 4 cm above the dell. The heart is enlarged. Veiling opacities in both lung bases suggest bilateral pleural effusions. No pneumothorax. IMPRESSION 1. Endotracheal tube approximately 4 cm above the dell. 2. Development of bilateral pleural effusions. Dictated by... Raj Segura M.D. THIS IS AN ELECTRONICALLY VERIFIED REPORT Raj Segura M.D. at 01/01/2017 10:48 PM Aidan/james TD: 01/01/2017 20:51 JOB #: [id number] MEDICAL IMAGING REPORT Page 1 of 1 COPY
--- NOTE | ~2017-01-01 | TOC ---
Unit #: [id number] #: [id number] Patient: YANELI ARCE [id number] [facility] [address] [facility]. [place], [place] [address] [id number] I MR#: [id number] NAME: YANELI ARCE ROOM: [facility] Age: 81 Sex: M Admission Date: 01/01/2017 : 1935 Attending Physician: Jax Gonzalez M.D. Primary Care Physician: Nancy Mosqueda M.D. TRANSFER OF CARE SUMMARY REASON FOR ADMISSION Acute hypoxic respiratory failure. HISTORY OF PRESENT ILLNESS/HOSPITAL COURSE The patient is an 81-year-old male, who was recently admitted to [facility] late September 2016. At that point, he was discharged to [facility]. While he was at [facility], apparently he was gradually weaned off of increased O2 requirements. He was subsequently discharged to a rehab facility where within 48 hours he declined significantly. Subsequently, presented back to [facility] for evaluation. Subsequently, he was intubated, placed in the ICU, and consultation has been placed to Dr. Giordano and Dr. Andre and associates for evaluation. They have continued to follow patient. Antibiotic management as well as appropriate respiratory management as per the running specialist. The patient did undergo bronchoscopy. This was conducted yesterday on January 07, 2017. Patient tolerated procedure well. Consultation was also placed to cardiology services for evaluation secondary to his prior history of diastolic dysfunction. He was initially on IV diuresis that has been transitioned. He did have elevated troponins and cardiology continues to follow. It seems likely it is an O2 demand mismatch. He was also noted to have a sacral decubitus ulcer which was present on admission. Wound care has been following as well. At this point in time, patient's prognosis is guarded. is well aware. Plans have been reviewed with her in detail. CLINICAL DIAGNOSES Current clinical diagnoses as of January 08, 2017: 1. Acute on chronic hypoxic respiratory failure. 2. Pulmonary edema versus acute infiltrate. 3. Non ST elevation myocardial infarction. 4. Acute respiratory distress syndrome. 5. Mild rhabdomyolysis. 6. Paroxysmal atrial fibrillation. 7. Diastolic dysfunction. 8. Diabetes. Unit #: [id number] #: [id number] Patient: YANELI ARCE 9. Morbid obesity. 10. Sacral decubitus ulcer seen on admission. 11. Sepsis present on admission. Discharge medications and/or further disposition will be dictated by my partner. Dictated by... Jax Gonzalez M.D. SANA/nicholas TD: 01/08/2017 19:07 JOB #: [id number] TRANSFER OF CARE SUMMARY Page 1 of 1 X Jax Gonzalez MD X TRANSFER OF CARE SUMMARY
--- NOTE | ~2017-01-01 | CT71 ---
[facility] A Service of [facility] & [facility] RADIOLOGY TEXT RESULTS PATIENT: YANELI ARCE LOCATION: [address] : [birth year] UNIT #: [id number] AGE: [address]: Jax Gonzalez MD SEX: M ORDER DR: [id number] [facility] [address] [place], [place] [address] [id number] I MR#: [id number] Acc #: [id number] NAME: YANELI ARCE : 1935 SEX: M STUDY DATE/TIME: 01/01/2017 4:32 UNIT: [facility] ROOM: [facility] STUDY DESCRIPTION: CT Head Wo Contrast Attending Physician: Jax Gonzalez M.D. Ordering Physician: Roe Huerta M.D. Primary Care Physician: Nancy Mosqueda M.D. MEDICAL IMAGING REPORT This report is preliminary unless electronic signature is present EXAM CT head INDICATIONS Shortness of air and respiratory distress. Unresponsive for [address] of the head without contrast. This CT exam was performed with one or more of the following radiation dose reduction techniques: Automatic exposure control, adjustment of mA and/or kV according to patient size, and iterative reconstruction. COMPARISON CT head 05/22/2014 and 11/07/2016. FINDINGS The midline fat-containing mass centered between the lateral ventricles measures up to 5 cm, unchanged from the prior study. There is some extension into the lateral ventricles. There is mild ventriculomegaly, which is unchanged from prior studies. 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 No new intracranial findings. No extraaxial collection. No acute osseous abnormalities. Bilateral mastoid effusions, right greater than left are similar to the prior study. There is a right middle ear effusion. Mild mucosal thickening is noted in the paranasal sinuses. IMPRESSION 1. No acute intracranial findings. 2. Large fatty mass along the midline, between the lateral ventricles. This is unchanged from prior studies. 3. Mild ventriculomegaly is unchanged. 4. Encephalomalacia in the right occipital lobe from a prior occipital [facility] A Service of [facility] RADIOLOGY TEXT RESULTS PATIENT: YANELI ARCE LOCATION: [facility]08 : 33 UNIT #: [id number] AGE: [address]: Jax Gonzalez MD SEX: M ORDER DR: infarct. 5. Bilateral mastoid effusions, right greater than left as well as a right middle ear effusion. Correlate for any evidence of otitis media/mastoiditis. Dictated by... Raj Segura M.D. THIS IS AN ELECTRONICALLY VERIFIED REPORT Raj Segura M.D. at 01/01/2017 10:49 PM RPAidan/james TD: 01/01/2017 21:13 JOB #: [id number] MEDICAL IMAGING REPORT Page 1 of 1 COPY
--- NOTE | ~2017-01-01 | CR72 ---
[facility] A Service of [facility] & [facility] RADIOLOGY TEXT RESULTS PATIENT: YANELI ARCE LOCATION: [address] : [birth year] UNIT #: [id number] AGE: [address]: Jax Gonzalez MD SEX: M ORDER DR: [id number] [facility] [address] [facility]. [place], [place] [address] [id number] I MR#: [id number] Acc #: [id number] NAME: YANELI ARCE : 1935 SEX: M STUDY DATE/TIME: 01/06/2017 4:42 UNIT: [facility] ROOM: [facility] STUDY DESCRIPTION: CR Chest Single View Portable Attending Physician: Jax Gonzalez M.D. Ordering Physician: Liana Giordano M.D. Primary Care Physician: Nancy Mosqueda M.D. MEDICAL IMAGING REPORT This report is preliminary unless electronic signature is present EXAM Portable chest INDICATION Followup respiratory failure and endotracheal tube. FINDINGS Today's portable view of the chest is compared with yesterday's study. They are low-lung volume with cardiomegaly and mild bibasilar atelectasis. The endotracheal tube and central venous catheter are stable. Dictated by... Ankit Duke M.D. THIS IS AN ELECTRONICALLY VERIFIED REPORT Ankit Duke M.D. at 01/07/2017 1:37 PM YAMILEX/evans TD: 01/07/2017 05:24 JOB #: [id number] MEDICAL IMAGING REPORT Page 1 of 1 COPY
--- NOTE | ~2017-01-01 | DS ---
Unit #: [id number] #: [id number] Patient: YANELI ARCE [id number] [id number] [facility]. [place], [place] [address] [id number] I MR#: [id number] NAME: YANELI ARCE ROOM: 307 Age: 81 Sex: M Admission Date: 01/01/2017 : 1935 Discharge Date: Attending Physician: Eduardo Aldridge M.D. Primary Care Physician: Nancy Mosqueda M.D. DISCHARGE SUMMARY ADDENDUM This is an addendum to a discharge summary that follows Transfer of Care note by Dr. Gonzalez on January 08 and the discharge summary done by Dr. Emilie Levine on January 20. Addendum as follows: ADDITIONAL DISCHARGE DIAGNOSES 1. Pneumonia. 2. Severe protein calorie malnutrition. 3. Toxic metabolic encephalopathy. HOSPITAL COURSE The patient was successfully extubated on January 16. As mentioned above, PEG tube was placed the same day. The patient had been on IV antibiotics for pneumonia until the day prior. The patient's respiratory status has continued to improve. His oxygen requirements are such that he is now on 4 L nasal cannula and sat'ing in the 90s. The patient was suffering from some worsening of his dementia initially. This was thought to be secondary to his hypoxia and infection. Discussion with the patient's reveals that he is apparently at baseline at this time. The patient has also continued to be followed by physical and occupational therapies. It is not clear at this time how much improvement can be expected from therapy. A very low discussion has been had with the patient's by multiple members of the care team. Her ultimate goal is to have the patient back home in his original state of health where he was able to stand and transfer. DISCHARGE MEDICATIONS 1. Combivent q.4 hours. 2. Flomax 0.4 mg per PEG at bedtime. 3. Lyrica 100 mg per PEG b.i.d. 4. Seroquel 100 mg per PEG q. h.s. and 25 mg, one to two tabs p.o. in the morning p.r.n. agitation. 5. Coreg 6.25 mg per PEG b.i.d. 6. Norvasc 5 mg per PEG daily. 7. Docusate sodium syrup 200 mg per PEG p.r.n. 8. MiraLAX 17 grams per PEG p.r.n. 9. Senokot 10 mg per PEG p.r.n. 10. Bumex 1 mg per PEG daily. Unit #: [id number] #: [id number] Patient: YANELI ARCE 11. Robitussin 19 mL per PEG t.i.d. p.r.n. 12. Lipitor 10 mg per PEG at bedtime. 13. Levemir 14 units in the morning, 8 units at night. 14. NovoLog high dose sliding scale. 15. Feosol 300 mg PEG three times a day with meals. 16. Aspirin 81 mg per PEG daily. 17. Hydrocodone 7.5/325 per PEG q.6 hours p.r.n. 18. Protonix 40 mg per PEG b.i.d. 19. Potassium chloride 20 mEq daily. FOLLOWUP The patient can be discharged to rehab. Should follow up with his primary care provider upon discharge from that facility. Dictated by... Eduardo Aldridge M.D. GIANLUCA/jamar TD: 01/22/2017 12:45 JOB #: [id number] DISCHARGE SUMMARY Page 1 of 1 X Eduardo Aldridge MD X DISCHARGE SUMMARY
--- NOTE | ~2017-01-01 | CR72 ---
[facility] A Service of [facility] & [facility] RADIOLOGY TEXT RESULTS PATIENT: YANELI ARCE LOCATION: [address]08 : [birth year] UNIT #: [id number] AGE: [address]: Jax Gonzalez MD SEX: M ORDER DR: [id number] [facility] [address] [facility]. [place], [place] [address] [id number] I MR#: [id number] Acc #: [id number] NAME: YANELI ARCE : 1935 SEX: M STUDY DATE/TIME: 01/02/2017 4:05 UNIT: [facility] ROOM: [facility] STUDY DESCRIPTION: CR Chest Single View Portable Attending Physician: Jax Gonzalez M.D. Ordering Physician: Parth Andre M.D. Primary Care Physician: Nancy Mosqueda M.D. MEDICAL IMAGING REPORT This report is preliminary unless electronic signature is present EXAM Single view chest. INDICATIONS Respiratory failure and hypertension. FINDINGS Single portable AP view of the chest compared to 01/01/2017. Support lines and tubes are unchanged. Heart and mediastinal contours are stable. Increased interstitial opacities and bibasilar airspace opacity/effusions are similar to the prior study. No pneumothorax. IMPRESSION No interval change. Dictated by... Raj Segura M.D. THIS IS AN ELECTRONICALLY VERIFIED REPORT Raj Segura M.D. at 01/02/2017 11:40 PM RPC/urbano TD: 01/02/2017 11:57 JOB #: [id number] MEDICAL IMAGING REPORT Page 1 of 1 COPY
--- NOTE | ~2017-01-01 | CR7 ---
[facility] A Service of [facility] RADIOLOGY TEXT RESULTS PATIENT: YANELI ARCE LOCATION: [address] : [birth year] UNIT #: [id number] AGE: [address]: Jax Gonzalez MD SEX: M ORDER DR: [id number] [facility] [address] [facility]. [place], [place] [address] [id number] I MR#: [id number] Acc #: [id number] NAME: YANELI ARCE : 1935 SEX: M STUDY DATE/TIME: 01/01/2017 19:47 UNIT: [facility] ROOM: [facility] STUDY DESCRIPTION: CR Abdomen Single AP View Attending Physician: Jax Gonzalez M.D. Ordering Physician: Jax Gonzalez M.D. Primary Care Physician: Nancy Mosqueda M.D. MEDICAL IMAGING REPORT This report is preliminary unless electronic signature is present EXAM Portable abdomen. HISTORY NG tube placement. FINDINGS Compared to earlier today, the feeding tube has been removed and an NG tube has been placed and the tube is curled in the stomach with its tip in the right upper quadrant at the level of the distal stomach approximately 35 cm beyond the EG junction. Dense consolidation or atelectasis in the left base and mild patchy infiltrate or atelectasis in the right base. Dictated by... Charles Bullard M.D. THIS IS AN ELECTRONICALLY VERIFIED REPORT Charles Bullard M.D. at 01/03/2017 12:07 AM DFLorena/urbano TD: 01/02/2017 09:21 JOB #: [id number] MEDICAL IMAGING REPORT Page 1 of 1 COPY
--- NOTE | ~2017-01-01 | FU ---
[facility] Nutrition Therapy DATE: 01/08/17 Patient: YANELI ARCE Physician: IRVINGR Address: [address] Room/Bed: [address], Zip: [place] [address] Admit Date: 01/01/17 Date of : [birth year] Height: 6 2 Weight: 224 102 NUTRITION MONITORING/FOLLOW-UP: Reason: Enteral nutrition follow-up 81 y/o male admitted for respiratory distress Anthropometrics: ht: 5'" wt: 224# (bed scale 01/08) (101.8 kg) BMI: 31 -previous weight 192#-246# Labs: Glu 182, BUN 46, Ca++ 7.6, Alb 2.2 Meds: fentanyl, levemir, versed, novolog, senoket, lipitor, protonix, solu-medrol, coreg, zosyn I&O's: 3449/1435. BM 12/29 Skin: previously noted Estimated Nutrition Needs: 2173-2002 kcals 95-11 g protein Assessment: Chart reviewed, events noted. Pt continues to be intubated and sedated in ICU. Pt is currently receiving enteral nutrition support of Glucerna 1.5 @ 55 mL/hr, receiving 1169 mL, ~87% of goal volume the past 24 hours per pump history. RN reports that the pt is tolerating the tubefeeds with minimal residuals. RD will continue to follow. Dx: Inadequate oral intake r/t current diagnosis, vent dependance, prior decreased appetite AEB enteral nutrition support -ACTIVE/ IN PROGRESS Intervention: 1. Enteral nutrition support Glucerna 1.5 Monitoring, Evaluation and Goals: 1. Enteral nutrition; tolerate >80% of estimated goal volume -MET/ IN PROGRESS 2. Weight; promote weight maintenance, prevent weight loss -IN PROGRESS 3. Labs; glu (not improved), Na+ (not improved) -IN PROGRESS 4. GI; promote regular GI function - NOT MET/ NO RECENT BM 5. Skin; prevent further breakdown -IN PROGRESS Monitor: -extubation -weight [facility] Nutrition Therapy DATE: 01/08/17 Patient: YANELI ARCE Physician: ROGER Address: [address] Room/Bed: [address], Zip: [place] [address] Admit Date: 01/01/17 Date of : [birth year] Height: 6 2 Weight: 224 102 -labs -GI/bowel movements Recommendations: 1. Continue current enteral nutrition support of Glucerna1.5 @ 55 mL/hr x 24 hours. 2. Obtain updated HgbA1c value 3. If pt extubated, consult HEARING AID CONSULTANT, recommend consistent carbohydrate diet + mechanical soft + nectar thickened liquids (prior ICU admit diet) 4. Obtain information regarding DM management at home. RD will f/u per protocol as pt is at moderate nutritional risk. Respectfully, CLAUDIO UGALDE, hospitality internship Radha Do MS, RD, LD [facility] cc: client file
--- NOTE | ~2017-01-01 | CR72 ---
[facility] A Service of [facility] & [facility] RADIOLOGY TEXT RESULTS PATIENT: YANELI ARCE LOCATION: [address]08 : [birth year] UNIT #: [id number] AGE: [address]: Jax Gonzalez MD SEX: M ORDER DR: [id number] [facility] [address]. [place], [place] [address] [id number] I MR#: [id number] Acc #: [id number] NAME: YANELI ARCE : 1935 SEX: M STUDY DATE/TIME: 01/06/2017 23:59 UNIT: [facility] ROOM: [facility] STUDY DESCRIPTION: CR Chest Single View Portable Attending Physician: Jax Gonzalez M.D. Ordering Physician: Liana Giordano M.D. Primary Care Physician: Nancy Mosqueda M.D. MEDICAL IMAGING REPORT This report is preliminary unless electronic signature is present EXAM Portable chest, 01/06. INDICATION Shortness of air, follow up endotracheal tube, respiratory distress, change in status today. COMPARISON To earlier the same day. FINDINGS This portable view of the chest shows no significant change from earlier. There appears to be left lower lobe atelectasis with faint bilateral infiltrates. The endotracheal tube and central venous catheter and nasogastric tube are stable. Dictated by... Ankit Duke M.D. THIS IS AN ELECTRONICALLY VERIFIED REPORT Ankit Duke M.D. at 01/07/2017 1:36 PM FEL/bd TD: 01/07/2017 12:47 JOB #: [id number] MEDICAL IMAGING REPORT Page 1 of 1 COPY
--- NOTE | ~2017-01-01 | EKG ---
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
--- NOTE | ~2017-01-01 | OR ---
Unit #: [id number] #: [id number] Patient: YANELI ARCE [id number] [address] [place], [place] [address] [id number] MR#: [id number] NAME: YANELI ARCE ROOM: [facility] Date of Procedure: 01/07/2017 Admission Date: 01/01/2017 Surgeon: Crescencio Giordano M.D. : 1935 Attending Physician: Jax Gonzalez M.D. Primary Care Physician: Nancy Mosqueda M.D. PROCEDURE OPERATIVE NOTE PROCEDURE PERFORMED Diagnostic and therapeutic bronchoscopy with bronchial washing. INDICATION FOR PROCEDURE Respiratory failure and worsening chest x-ray. ANESTHESIA The patient is on a fentanyl drip and he received 2 mg of Versed IV. PROCEDURE An informed consent was obtained from the patient's after explaining the benefits and risks of this procedure. The patient was prepped and positioned in the appropriate way and then the bronchoscope was advanced through the ET tube. At the level of the dell 1% lidocaine times 6 cc was pushed and then the bronchoscope was advanced into the left main bronchus. The left upper lobe, left lower lobe and lingula were examined, which appeared normal except for copious amount of mucus plugs and secretions. Multiple normal saline flushes were used to break the mucus in small pieces and then aspirated through the bronchoscope channel. Washing was obtained from the left lower lobe, which will be sent for microbiology and cytology. The bronchoscope was retracted and then readvanced in the right main bronchus and right upper lobe, right middle lobe and right lower lobe were examined. The patient again was noted to have a diffuse and extensive amount of greenish thick mucus plus that was aspirated and lavaged with normal saline flushes. The bronchoscope was retracted out. The patient tolerated the procedure well with no immediate complication. Dictated by... Crescencio Giordano M.D. EA/jessica TD: 01/07/2017 12:44 JOB #: [id number] Unit #: [id number] #: [id number] Patient: YANELI ARCE PROCEDURE OPERATIVE NOTE Page 1 of 1 X CRESCENCIO HOFF MD PROCEDURE OPERATIVE NOTE
--- NOTE | ~2017-01-01 | CR72 ---
[facility] A Service of [facility] & [facility] RADIOLOGY TEXT RESULTS PATIENT: YANELI ARCE LOCATION: [address]08 : [birth year] UNIT #: [id number] AGE: [address]: Jax Gonzalez MD SEX: M ORDER DR: [id number] [facility] [address] [place], [place] [address] [id number] I MR#: [id number] #: [id number] NAME: YANELI ARCE : 1935 SEX: M STUDY DATE/TIME: 01/04/2017 5:48 UNIT: [facility] ROOM: [facility] STUDY DESCRIPTION: CR Chest Single View Portable Attending Physician: Jax Gonzalez M.D. Ordering Physician: Liana Giordano M.D. Primary Care Physician: Nancy Mosqueda M.D. MEDICAL IMAGING REPORT This report is preliminary unless electronic signature is present EXAM Portable chest, 01/04 INDICATION Shortness of air. Respiratory failure. Hypotension. Symptoms for 3 days. FINDINGS AP portable chest is compared with 01/02/2017. Tubes and lines are unchanged and well positioned. Lung volumes are much lower today. There has been marked interval increase in bilateral infiltrates which may be due to a combination of edema and atelectasis. Pneumonia should be excluded clinically. Small bilateral pleural effusions are present. No pneumothorax. Dictated by... Kenneth Hearn Jr., M.D. THIS IS AN ELECTRONICALLY VERIFIED REPORT Kenneth Hearn Jr., M.D. at 01/04/2017 4:09 PM LINDA/louie TD: 01/04/2017 09:27 JOB #: [id number] MEDICAL IMAGING REPORT Page 1 of 1 COPY
[~2017-01-01 03:08] MED LIST changes: +SEROQUEL100 MG PO; +SEROQUEL50 M1 PO
[2017-01-01 03:44] LABS: BASOPHIL# 0.1 X10e3 (0-0.3); BASOPHIL% 0.5 % (0-2.5); EOSINOPHIL% 0.4 % (0.0-7.0); HEMOGLOBIN 11.5 gm/dL (13.0-16.0); LYMPHOCYTE# 1.2 X10e3 (1.0-3.5); LYMPHOCYTE% 10.2 % (17.0-45.0); MEAN CELL VOLUME 97.7 FL (83-96); MEAN CORPUSCULAR HEMOGLOBIN 31.2 PG (28-34); MEAN CORPUSCULAR HGB CONC 31.9 g/dL (30-36); MEAN PLATELET VOLUME 7.2 FL (6.5-11.5); MONOCYTE# 0.7 X10e3 (0-1.0); MONOCYTE% 5.7 % (3.0-12.0); NEUTROPHIL# 9.8 X10e3 (1.5-7.1); NEUTROPHIL% 83.2 % (40-75); PLATELET COUNT 307 X10e3 (140-420); RED BLOOD COUNT 3.69 X10e (3.90-5.60); RED CELL DISTRIBUTION WIDTH 16.1 % (11.0-15.5); WHITE BLOOD COUNT 11.8 X10e3 (4.0-10.5)
[2017-01-01 03:45] LABS: DIFF IND NO
[2017-01-01 04:05] LABS: ARTERIAL BLD GAS O2 SATURATION 94.5 % (90.0-100.0); ARTERIAL BLOOD GAS HCO3 31.2 mmol/L; ARTERIAL BLOOD GAS MET HB 0.7 %sat (0.0-2.0); ARTERIAL BLOOD GAS PO2 89.2 mmHg (80.0-100)
[2017-01-01 04:06] LABS: ALBUMIN SERUM 2.7 g/dL (3.5-5.0); BILIRUBIN, DIRECT 0.1 mg/dL (0.0-0.2); BILIRUBIN,TOTAL 1.1 mg/dL (0.2-2.0); BUN/CREATININE RATIO 16.42; CALCIUM SERUM 8.2 mg/dL (8.4-10.2); CREATININE SERUM 1.4 mg/dL (0.6-1.4); GLOM FILT RATE Estimated 46.2 mL/min (>60); POTASSIUM 4.4 mmol/L (3.5-5.1); PROTEIN TOTAL SERUM 6.8 g/dL (6.0-8.3)
[2017-01-01 04:07] LABS: ARTERIAL BLOOD GAS ALLEN TEST NORMAL; ARTERIAL BLOOD GAS ART SITE RIGHT RADIAL; ARTERIAL BLOOD GAS DELIVERY VENT; ARTERIAL BLOOD GAS PCO2 71.3 mmHg (35.0-45.0); ARTERIAL BLOOD GAS VENT MODE A/C; ARTERIAL DRAW? YES
[2017-01-01 05:37] LABS: URINE SOURCE CLEAN CATCH
[2017-01-01 05:40] LABS: URINE APPEARANCE TURBID; URINE BLOOD 3+ (NEG); URINE COLOR DK YELLOW; URINE GLUCOSE NEG (NEG); URINE KETONE NEG (NEG); URINE LEUKOCYTE ESTERASE 3+ (NEG); URINE NITRATE POS (NEG); URINE PROTEIN 3+ (NEG); URINE SPECIFIC GRAVITY 1.022 (1.003-1.035)
[2017-01-01 05:42] LABS: CULTURE INDICATED? YES; URBCS1 AUWI 50-100 /[HPF] (0-2); URINE BACTERIA AUWI 2+ (NEGATIVE); URINE SQUAMOUS EPITHELIAL CELL OCC /[HPF]; UWBCS1 AUWI INNUM (0-5)
[2017-01-01 05:57] LABS: URINE BILIRUBIN NEG (NEG)
[2017-01-01 06:00] LABS: URINE YEAST PRESENT
[2017-01-01 06:45] LABS: POC - CKMB 3.1 ng/mL (0.0-7.9); POC - TROPONIN <0.05 ng/mL (<=0.05)
[2017-01-01 09:54] LABS: ARTERIAL BLOOD GAS CARBOXY HB 1.1 %sat (0.0-9.0); ARTERIAL BLOOD GAS HCO3 26.2 mmol/L; ARTERIAL BLOOD GAS MET HB 0.7 %sat (0.0-2.0); ARTERIAL BLOOD GAS PCO2 44.6 mmHg (35.0-45.0); ARTERIAL BLOOD GAS pH 7.377 (7.350-7.450)
[2017-01-01 09:56] LABS: ARTERIAL BLOOD GAS ALLEN TEST N; ARTERIAL BLOOD GAS PO2 64.5 mmHg (80.0-100); ARTERIAL DRAW? YES
[2017-01-01 09:57] LABS: ARTERIAL BLOOD GAS ART SITE LEFT RADIAL; ARTERIAL BLOOD GAS DELIVERY VENT; ARTERIAL BLOOD GAS VENT MODE AC
[2017-01-01 12:28] LABS: %MB 0.4 % (0.0-4.0); MB 4.6 ng/ml
[2017-01-02 03:10] LABS: BASOPHIL% 0.4 % (0-2.5); HEMATOCRIT 32.5 % (38.0-50.0); HEMOGLOBIN 10.4 gm/dL (13.0-16.0); LYMPHOCYTE# 0.5 X10e3 (1.0-3.5); LYMPHOCYTE% 4.6 % (17.0-45.0); MEAN CELL VOLUME 96.8 FL (83-96); MEAN PLATELET VOLUME 7.3 FL (6.5-11.5); MONOCYTE# 0.2 X10e3 (0-1.0); MONOCYTE% 1.6 % (3.0-12.0); NEUTROPHIL# 9.3 X10e3 (1.5-7.1); NEUTROPHIL% 93.4 % (40-75); PLATELET COUNT 297 X10e3 (140-420); RED BLOOD COUNT 3.36 X10e (3.90-5.60); WHITE BLOOD COUNT 9.9 X10e3 (4.0-10.5)
[2017-01-02 03:11] LABS: DIFF IND NO
[2017-01-02 03:48] LABS: ALBUMIN SERUM 2.1 g/dL (3.5-5.0); BILIRUBIN,TOTAL 0.4 mg/dL (0.2-2.0); CALCIUM SERUM 7.6 mg/dL (8.4-10.2); GLOM FILT RATE Estimated 69.3 mL/min (>60); POTASSIUM 3.8 mmol/L (3.5-5.1)
[2017-01-02 04:08] LABS: %MB 0.4 % (0.0-4.0); MB 2.7 ng/ml
[2017-01-02 04:30] LABS: ARTERIAL BLD GAS O2 SATURATION 97.6 % (90.0-100.0); ARTERIAL BLOOD GAS CARBOXY HB 0.7 %sat (0.0-9.0); ARTERIAL BLOOD GAS HCO3 23.7 mmol/L; ARTERIAL BLOOD GAS MET HB 0.8 %sat (0.0-2.0); ARTERIAL BLOOD GAS PCO2 41.4 mmHg (35.0-45.0); ARTERIAL BLOOD GAS pH 7.365 (7.350-7.450)
[2017-01-02 04:31] LABS: ARTERIAL BLOOD GAS ALLEN TEST NORMAL; ARTERIAL BLOOD GAS ART SITE RIGHT RADIAL; ARTERIAL BLOOD GAS DELIVERY VENT; ARTERIAL BLOOD GAS VENT MODE AC; ARTERIAL DRAW? YES
[2017-01-03 04:16] LABS: ARTERIAL BLD GAS O2 SATURATION 91.4 % (90.0-100.0); ARTERIAL BLOOD GAS CARBOXY HB 0.8 %sat (0.0-9.0); ARTERIAL BLOOD GAS HCO3 24.8 mmol/L; ARTERIAL BLOOD GAS MET HB 0.9 %sat (0.0-2.0); ARTERIAL BLOOD GAS PCO2 46.1 mmHg (35.0-45.0); ARTERIAL BLOOD GAS pH 7.339 (7.350-7.450)
[2017-01-03 04:41] LABS: ARTERIAL BLOOD GAS ALLEN TEST NORMAL; ARTERIAL BLOOD GAS ART SITE RIGHT RADIAL; ARTERIAL BLOOD GAS PO2 67.4 mmHg (80.0-100); ARTERIAL BLOOD GAS VENT MODE AC; ARTERIAL DRAW? YES
[2017-01-03 08:24] LABS: BASOPHIL% 0.2 % (0-2.5); HEMATOCRIT 32.7 % (38.0-50.0); HEMOGLOBIN 10.3 gm/dL (13.0-16.0); LYMPHOCYTE# 0.5 X10e3 (1.0-3.5); LYMPHOCYTE% 3.7 % (17.0-45.0); MEAN CELL VOLUME 97.6 FL (83-96); MEAN CORPUSCULAR HEMOGLOBIN 30.9 PG (28-34); MEAN CORPUSCULAR HGB CONC 31.7 g/dL (30-36); MEAN PLATELET VOLUME 7.6 FL (6.5-11.5); MONOCYTE# 0.5 X10e3 (0-1.0); MONOCYTE% 3.8 % (3.0-12.0); NEUTROPHIL# 11.7 X10e3 (1.5-7.1); NEUTROPHIL% 92.3 % (40-75); PLATELET COUNT 315 X10e3 (140-420); RED BLOOD COUNT 3.35 X10e (3.90-5.60); RED CELL DISTRIBUTION WIDTH 16.3 % (11.0-15.5); WHITE BLOOD COUNT 12.6 X10e3 (4.0-10.5)
[2017-01-03 08:29] LABS: DIFF IND NO
[2017-01-03 09:09] LABS: BUN/CREATININE RATIO 25.45; CALCIUM SERUM 7.9 mg/dL (8.4-10.2); CREATININE SERUM 1.1 mg/dL (0.6-1.4); GLOM FILT RATE Estimated 61.8 mL/min (>60); POTASSIUM 5.1 mmol/L (3.5-5.1)
[2017-01-04 03:28] LABS: BASOPHIL# 0.1 X10e3 (0-0.3); BASOPHIL% 0.5 % (0-2.5); HEMATOCRIT 31.6 % (38.0-50.0); HEMOGLOBIN 9.9 gm/dL (13.0-16.0); LYMPHOCYTE# 0.5 X10e3 (1.0-3.5); LYMPHOCYTE% 3.8 % (17.0-45.0); MEAN CELL VOLUME 97.8 FL (83-96); MEAN CORPUSCULAR HEMOGLOBIN 30.7 PG (28-34); MEAN CORPUSCULAR HGB CONC 31.4 g/dL (30-36); MEAN PLATELET VOLUME 7.4 FL (6.5-11.5); MONOCYTE# 0.4 X10e3 (0-1.0); MONOCYTE% 3.5 % (3.0-12.0); NEUTROPHIL# 11.2 X10e3 (1.5-7.1); NEUTROPHIL% 92.2 % (40-75); PLATELET COUNT 284 X10e3 (140-420); RED BLOOD COUNT 3.23 X10e (3.90-5.60); RED CELL DISTRIBUTION WIDTH 16.3 % (11.0-15.5); WHITE BLOOD COUNT 12.1 X10e3 (4.0-10.5)
[2017-01-04 03:37] LABS: DIFF IND NO
[2017-01-04 03:44] LABS: BUN/CREATININE RATIO 31.53; CALCIUM SERUM 7.9 mg/dL (8.4-10.2); CREATININE SERUM 1.3 mg/dL (0.6-1.4); GLOM FILT RATE Estimated 50.5 mL/min (>60); POTASSIUM 4.9 mmol/L (3.5-5.1)
[2017-01-04 04:22] LABS: ARTERIAL BLOOD GAS CARBOXY HB 0.5 %sat (0.0-9.0); ARTERIAL BLOOD GAS HCO3 27.2 mmol/L; ARTERIAL BLOOD GAS MET HB 0.6 %sat (0.0-2.0); ARTERIAL BLOOD GAS PCO2 48.8 mmHg (35.0-45.0); ARTERIAL BLOOD GAS pH 7.355 (7.350-7.450)
[2017-01-04 04:26] LABS: ARTERIAL BLOOD GAS ALLEN TEST NORMAL; ARTERIAL BLOOD GAS PO2 69.3 mmHg (80.0-100); ARTERIAL DRAW? YES
[2017-01-04 04:27] LABS: ARTERIAL BLOOD GAS ART SITE RIGHT RADIAL; ARTERIAL BLOOD GAS VENT MODE AC
[2017-01-05 04:22] LABS: ARTERIAL BLD GAS O2 SATURATION 93.7 % (90.0-100.0); ARTERIAL BLOOD GAS CARBOXY HB 0.9 %sat (0.0-9.0); ARTERIAL BLOOD GAS HCO3 31.2 mmol/L; ARTERIAL BLOOD GAS MET HB 0.9 %sat (0.0-2.0); ARTERIAL BLOOD GAS PCO2 46.2 mmHg (35.0-45.0); ARTERIAL BLOOD GAS pH 7.438 (7.350-7.450)
[2017-01-05 04:29] LABS: ARTERIAL BLOOD GAS ALLEN TEST NORMAL; ARTERIAL BLOOD GAS ART SITE LEFT RADIAL; ARTERIAL BLOOD GAS DELIVERY VENT; ARTERIAL BLOOD GAS VENT MODE AC; ARTERIAL DRAW? YES
[2017-01-05 05:16] LABS: HEMATOCRIT 31.7 % (38.0-50.0); HEMOGLOBIN 10.4 gm/dL (13.0-16.0); LYMPHOCYTE# 0.4 X10e3 (1.0-3.5); LYMPHOCYTE% 4.6 % (17.0-45.0); MEAN CELL VOLUME 96.2 FL (83-96); MEAN CORPUSCULAR HEMOGLOBIN 31.4 PG (28-34); MEAN CORPUSCULAR HGB CONC 32.6 g/dL (30-36); MEAN PLATELET VOLUME 7.7 FL (6.5-11.5); MONOCYTE# 0.4 X10e3 (0-1.0); MONOCYTE% 4.3 % (3.0-12.0); NEUTROPHIL# 7.6 X10e3 (1.5-7.1); NEUTROPHIL% 91.1 % (40-75); PLATELET COUNT 286 X10e3 (140-420); RED CELL DISTRIBUTION WIDTH 16.1 % (11.0-15.5); WHITE BLOOD COUNT 8.3 X10e3 (4.0-10.5)
[2017-01-05 05:36] LABS: DIFF IND NO
[2017-01-05 06:17] LABS: BUN/CREATININE RATIO 41.81; CALCIUM SERUM 7.7 mg/dL (8.4-10.2); CREATININE SERUM 1.1 mg/dL (0.6-1.4); GLOM FILT RATE Estimated 61.8 mL/min (>60); POTASSIUM 4.2 mmol/L (3.5-5.1)
[2017-01-06 04:12] LABS: ARTERIAL BLD GAS O2 SATURATION 92.2 % (90.0-100.0); ARTERIAL BLOOD GAS CARBOXY HB 0.7 %sat (0.0-9.0); ARTERIAL BLOOD GAS HCO3 33.1 mmol/L; ARTERIAL BLOOD GAS MET HB 0.8 %sat (0.0-2.0); ARTERIAL BLOOD GAS PCO2 49.8 mmHg (35.0-45.0); ARTERIAL BLOOD GAS pH 7.432 (7.350-7.450)
[2017-01-06 04:17] LABS: ARTERIAL BLOOD GAS PO2 67.1 mmHg (80.0-100)
[2017-01-06 04:18] LABS: ARTERIAL BLOOD GAS ALLEN TEST NORMAL; ARTERIAL BLOOD GAS ART SITE LEFT RADIAL; ARTERIAL BLOOD GAS DELIVERY VENT; ARTERIAL BLOOD GAS VENT MODE AC; ARTERIAL DRAW? YES
[2017-01-06 06:23] LABS: BASOPHIL% 0.4 % (0-2.5); HEMATOCRIT 32.4 % (38.0-50.0); HEMOGLOBIN 10.5 gm/dL (13.0-16.0); LYMPHOCYTE# 0.3 X10e3 (1.0-3.5); LYMPHOCYTE% 2.7 % (17.0-45.0); MEAN CELL VOLUME 95.6 FL (83-96); MEAN CORPUSCULAR HGB CONC 32.5 g/dL (30-36); MEAN PLATELET VOLUME 7.5 FL (6.5-11.5); MONOCYTE# 1.8 X10e3 (0-1.0); MONOCYTE% 16.7 % (3.0-12.0); NEUTROPHIL# 8.7 X10e3 (1.5-7.1); NEUTROPHIL% 80.2 % (40-75); PLATELET COUNT 290 X10e3 (140-420); RED BLOOD COUNT 3.39 X10e (3.90-5.60); RED CELL DISTRIBUTION WIDTH 16.7 % (11.0-15.5); WHITE BLOOD COUNT 10.8 X10e3 (4.0-10.5)
[2017-01-06 06:25] LABS: DIFF IND NO
[2017-01-06 06:31] LABS: ALBUMIN SERUM 2.2 g/dL (3.5-5.0); BILIRUBIN,TOTAL 0.4 mg/dL (0.2-2.0); BUN/CREATININE RATIO 46.36; CALCIUM SERUM 8.1 mg/dL (8.4-10.2); CREATININE SERUM 1.1 mg/dL (0.6-1.4); GLOM FILT RATE Estimated 61.8 mL/min (>60); MAGNESIUM 2.1 mg/dL (1.6-3.0); POTASSIUM 4.2 mmol/L (3.5-5.1); PROTEIN TOTAL SERUM 5.1 g/dL (6.0-8.3)
[2017-01-07 04:05] LABS: ARTERIAL BLD GAS O2 SATURATION 91.9 % (90.0-100.0); ARTERIAL BLOOD GAS CARBOXY HB 0.7 %sat (0.0-9.0); ARTERIAL BLOOD GAS HCO3 34.3 mmol/L; ARTERIAL BLOOD GAS MET HB 1.1 %sat (0.0-2.0); ARTERIAL BLOOD GAS pH 7.438 (7.350-7.450)
[2017-01-07 04:13] LABS: ARTERIAL BLOOD GAS ALLEN TEST NORMAL; ARTERIAL BLOOD GAS ART SITE LEFT RADIAL; ARTERIAL BLOOD GAS DELIVERY VENT; ARTERIAL BLOOD GAS PCO2 50.8 mmHg (35.0-45.0); ARTERIAL BLOOD GAS PO2 67.2 mmHg (80.0-100); ARTERIAL BLOOD GAS VENT MODE AC; ARTERIAL DRAW? YES
[2017-01-07 04:48] LABS: BUN/CREATININE RATIO 41.66; CALCIUM SERUM 7.5 mg/dL (8.4-10.2); CREATININE SERUM 1.2 mg/dL (0.6-1.4); GLOM FILT RATE Estimated 55.6 mL/min (>60); POTASSIUM 4.1 mmol/L (3.5-5.1)
[2017-01-08 04:00] LABS: ARTERIAL BLD GAS O2 SATURATION 91.3 % (90.0-100.0); ARTERIAL BLOOD GAS CARBOXY HB 0.9 %sat (0.0-9.0); ARTERIAL BLOOD GAS HCO3 35.5 mmol/L; ARTERIAL BLOOD GAS MET HB 0.9 %sat (0.0-2.0); ARTERIAL BLOOD GAS pH 7.417 (7.350-7.450)
[2017-01-08 04:01] LABS: ARTERIAL BLOOD GAS ALLEN TEST NORMAL; ARTERIAL BLOOD GAS ART SITE LEFT RADIAL; ARTERIAL BLOOD GAS DELIVERY VENT; ARTERIAL BLOOD GAS PCO2 55.2 mmHg (35.0-45.0); ARTERIAL BLOOD GAS PO2 66.1 mmHg (80.0-100); ARTERIAL BLOOD GAS VENT MODE AC; ARTERIAL DRAW? YES
[2017-01-08 04:39] LABS: BASOPHIL% 0.3 % (0-2.5); EOSINOPHIL% 0.1 % (0.0-7.0); HEMATOCRIT 31.6 % (38.0-50.0); LYMPHOCYTE# 0.6 X10e3 (1.0-3.5); LYMPHOCYTE% 4.9 % (17.0-45.0); MEAN CELL VOLUME 96.6 FL (83-96); MEAN CORPUSCULAR HEMOGLOBIN 30.7 PG (28-34); MEAN CORPUSCULAR HGB CONC 31.8 g/dL (30-36); MEAN PLATELET VOLUME 7.2 FL (6.5-11.5); MONOCYTE# 0.7 X10e3 (0-1.0); MONOCYTE% 5.5 % (3.0-12.0); NEUTROPHIL# 10.9 X10e3 (1.5-7.1); NEUTROPHIL% 89.2 % (40-75); PLATELET COUNT 285 X10e3 (140-420); RED BLOOD COUNT 3.27 X10e (3.90-5.60); RED CELL DISTRIBUTION WIDTH 16.2 % (11.0-15.5); WHITE BLOOD COUNT 12.3 X10e3 (4.0-10.5)
[2017-01-08 04:41] LABS: DIFF IND NO
[2017-01-08 04:51] LABS: BUN/CREATININE RATIO 41.81; CALCIUM SERUM 7.6 mg/dL (8.4-10.2); CREATININE SERUM 1.1 mg/dL (0.6-1.4); GLOM FILT RATE Estimated 61.8 mL/min (>60); POTASSIUM 4.6 mmol/L (3.5-5.1)
[2017-01-09 03:59] LABS: BASOPHIL% 0.1 % (0-2.5); HEMATOCRIT 31.4 % (38.0-50.0); HEMOGLOBIN 10.1 gm/dL (13.0-16.0); LYMPHOCYTE# 0.5 X10e3 (1.0-3.5); LYMPHOCYTE% 5.2 % (17.0-45.0); MEAN CELL VOLUME 95.6 FL (83-96); MEAN CORPUSCULAR HEMOGLOBIN 30.8 PG (28-34); MEAN CORPUSCULAR HGB CONC 32.2 g/dL (30-36); MEAN PLATELET VOLUME 7.4 FL (6.5-11.5); MONOCYTE# 0.4 X10e3 (0-1.0); NEUTROPHIL% 89.7 % (40-75); PLATELET COUNT 289 X10e3 (140-420); RED BLOOD COUNT 3.28 X10e (3.90-5.60); RED CELL DISTRIBUTION WIDTH 16.4 % (11.0-15.5); WHITE BLOOD COUNT 8.9 X10e3 (4.0-10.5)
[2017-01-09 04:01] LABS: DIFF IND YES
[2017-01-09 04:03] LABS: ARTERIAL BLD GAS O2 SATURATION 94.6 % (90.0-100.0); ARTERIAL BLOOD GAS CARBOXY HB 1.5 %sat (0.0-9.0); ARTERIAL BLOOD GAS HCO3 35.2 mmol/L; ARTERIAL BLOOD GAS PO2 88.7 mmHg (80.0-100); ARTERIAL BLOOD GAS pH 7.425 (7.350-7.450)
[2017-01-09 04:04] LABS: ARTERIAL BLOOD GAS PCO2 53.7 mmHg (35.0-45.0)
[2017-01-09 04:05] LABS: ARTERIAL BLOOD GAS ART SITE LEFT BRACHIAL; ARTERIAL BLOOD GAS DELIVERY VENT; ARTERIAL BLOOD GAS VENT MODE AC; ARTERIAL DRAW? YES
[2017-01-09 04:23] LABS: CALCIUM SERUM 7.7 mg/dL (8.4-10.2); GLOM FILT RATE Estimated 69.3 mL/min (>60); POTASSIUM 4.9 mmol/L (3.5-5.1)
[2017-01-09 04:31] LABS: ANISOCYTOSIS SL; PLATELET ESTIMATE NORMAL (NORMAL)
[2017-01-09 04:33] LABS: HYPOCHROMIA SL
[2017-01-10 05:29] LABS: ARTERIAL BLD GAS O2 SATURATION 94.5 % (90.0-100.0); ARTERIAL BLOOD GAS CARBOXY HB 0.9 %sat (0.0-9.0); ARTERIAL BLOOD GAS MET HB 0.6 %sat (0.0-2.0); ARTERIAL BLOOD GAS PCO2 39.1 mmHg (35.0-45.0)
[2017-01-10 05:33] LABS: ARTERIAL BLOOD GAS ALLEN TEST NORMAL; ARTERIAL BLOOD GAS ART SITE RIGHT RADIAL; ARTERIAL BLOOD GAS PO2 69.8 mmHg (80.0-100); ARTERIAL BLOOD GAS VENT MODE AC; ARTERIAL DRAW? YES
[2017-01-10 08:12] LABS: ARTERIAL BLD GAS O2 SATURATION 91.4 % (90.0-100.0); ARTERIAL BLOOD GAS CARBOXY HB 0.8 %sat (0.0-9.0); ARTERIAL BLOOD GAS HCO3 37.5 mmol/L; ARTERIAL BLOOD GAS MET HB 0.7 %sat (0.0-2.0); ARTERIAL BLOOD GAS PO2 62.4 mmHg (80.0-100); ARTERIAL BLOOD GAS pH 7.493 (7.350-7.450)
[2017-01-10 08:13] LABS: ARTERIAL BLOOD GAS ALLEN TEST NORMAL; ARTERIAL BLOOD GAS ART SITE RIGHT RADIAL; ARTERIAL BLOOD GAS VENT MODE CPAP; ARTERIAL DRAW? YES
[2017-01-10 09:57] LABS: BASOPHIL% 0.1 % (0-2.5); EOSINOPHIL# 0.1 X10e3 (0-0.7); EOSINOPHIL% 0.5 % (0.0-7.0); HEMATOCRIT 34.3 % (38.0-50.0); HEMOGLOBIN 11.1 gm/dL (13.0-16.0); LYMPHOCYTE# 1.1 X10e3 (1.0-3.5); LYMPHOCYTE% 8.1 % (17.0-45.0); MEAN CELL VOLUME 95.5 FL (83-96); MEAN CORPUSCULAR HEMOGLOBIN 30.8 PG (28-34); MEAN CORPUSCULAR HGB CONC 32.2 g/dL (30-36); MEAN PLATELET VOLUME 7.5 FL (6.5-11.5); MONOCYTE% 7.3 % (3.0-12.0); NEUTROPHIL# 11.4 X10e3 (1.5-7.1); PLATELET COUNT 317 X10e3 (140-420); RED CELL DISTRIBUTION WIDTH 16.8 % (11.0-15.5)
[2017-01-10 10:00] LABS: DIFF IND NO; WHITE BLOOD COUNT 13.6 X10e3 (4.0-10.5)
[2017-01-10 10:13] LABS: GLOM FILT RATE Estimated 69.3 mL/min (>60); POTASSIUM 4.4 mmol/L (3.5-5.1)
[2017-01-10 14:59] LABS: ARTERIAL BLD GAS O2 SATURATION 94.9 % (90.0-100.0); ARTERIAL BLOOD GAS CARBOXY HB 0.8 %sat (0.0-9.0); ARTERIAL BLOOD GAS HCO3 31.8 mmol/L; ARTERIAL BLOOD GAS MET HB 0.6 %sat (0.0-2.0); ARTERIAL BLOOD GAS PCO2 43.8 mmHg (35.0-45.0)
[2017-01-10 15:00] LABS: ARTERIAL BLOOD GAS ALLEN TEST NORMAL; ARTERIAL BLOOD GAS ART SITE RIGHT RADIAL; ARTERIAL BLOOD GAS DELIVERY BIPAP; ARTERIAL DRAW? YES
[2017-01-11 04:04] LABS: ARTERIAL BLD GAS O2 SATURATION 90.2 % (90.0-100.0); ARTERIAL BLOOD GAS CARBOXY HB 0.8 %sat (0.0-9.0); ARTERIAL BLOOD GAS MET HB 0.8 %sat (0.0-2.0); ARTERIAL BLOOD GAS pH 7.397 (7.350-7.450)
[2017-01-11 04:07] LABS: ARTERIAL BLOOD GAS ALLEN TEST NORMAL; ARTERIAL BLOOD GAS ART SITE LEFT RADIAL; ARTERIAL BLOOD GAS PCO2 50.4 mmHg (35.0-45.0); ARTERIAL BLOOD GAS PO2 63.8 mmHg (80.0-100); ARTERIAL DRAW? YES
[2017-01-11 04:08] LABS: ARTERIAL BLOOD GAS DELIVERY OXYMIZER
[2017-01-11 05:21] LABS: EOSINOPHIL% 0.1 % (0.0-7.0); LYMPHOCYTE# 0.8 X10e3 (1.0-3.5); MEAN CELL VOLUME 96.2 FL (83-96); MEAN CORPUSCULAR HEMOGLOBIN 30.3 PG (28-34); MEAN CORPUSCULAR HGB CONC 31.6 g/dL (30-36); MEAN PLATELET VOLUME 7.9 FL (6.5-11.5); MONOCYTE# 0.8 X10e3 (0-1.0); MONOCYTE% 5.3 % (3.0-12.0); NEUTROPHIL# 14.2 X10e3 (1.5-7.1); NEUTROPHIL% 89.6 % (40-75); PLATELET COUNT 336 X10e3 (140-420); RED BLOOD COUNT 3.64 X10e (3.90-5.60); RED CELL DISTRIBUTION WIDTH 16.3 % (11.0-15.5); WHITE BLOOD COUNT 15.8 X10e3 (4.0-10.5)
[2017-01-11 05:27] LABS: DIFF IND YES
[2017-01-11 07:27] LABS: BUN/CREATININE RATIO 31.66; CALCIUM SERUM 8.3 mg/dL (8.4-10.2); CREATININE SERUM 1.2 mg/dL (0.6-1.4); GLOM FILT RATE Estimated 55.6 mL/min (>60); MAGNESIUM 2.3 mg/dL (1.6-3.0); PHOSPHOROUS 3.3 mg/dL (2.5-4.6); POTASSIUM 4.5 mmol/L (3.5-5.1)
[2017-01-11 08:50] LABS: PLATELET ESTIMATE NORMAL (NORMAL)
[2017-01-11 08:52] LABS: ANISOCYTOSIS SL
[2017-01-11 11:25] LABS: URINE APPEARANCE CLEAR; URINE BILIRUBIN NEG (NEG); URINE BLOOD 2+ (NEG); URINE COLOR YELLOW; URINE GLUCOSE NEG (NEG); URINE KETONE NEG (NEG); URINE LEUKOCYTE ESTERASE NEG (NEG); URINE NITRATE NEG (NEG); URINE PROTEIN 1+ (NEG); URINE SPECIFIC GRAVITY 1.014 (1.003-1.035)
[2017-01-11 11:26] LABS: URBCS1 AUWI 50-100 /[HPF] (0-2); URINE BACTERIA AUWI NEG (NEGATIVE); URINE SQUAMOUS EPITHELIAL CELL NONE SEEN /[HPF]
[2017-01-11 12:00] LABS: CULTURE INDICATED? NO
[2017-01-11 12:03] LABS: URINE YEAST PRESENT
[2017-01-12 05:01] LABS: HEMATOCRIT 33.1 % (38.0-50.0); HEMOGLOBIN 10.4 gm/dL (13.0-16.0); MEAN CELL VOLUME 96.6 FL (83-96); MEAN CORPUSCULAR HEMOGLOBIN 30.5 PG (28-34); MEAN CORPUSCULAR HGB CONC 31.6 g/dL (30-36); MEAN PLATELET VOLUME 7.7 FL (6.5-11.5); RED BLOOD COUNT 3.43 X10e (3.90-5.60); RED CELL DISTRIBUTION WIDTH 16.7 % (11.0-15.5); WHITE BLOOD COUNT 16.2 X10e3 (4.0-10.5)
[2017-01-12 05:16] LABS: BUN/CREATININE RATIO 27.27; CALCIUM SERUM 8.1 mg/dL (8.4-10.2); CREATININE SERUM 1.1 mg/dL (0.6-1.4); GLOM FILT RATE Estimated 61.8 mL/min (>60); POTASSIUM 4.8 mmol/L (3.5-5.1)
[2017-01-12 12:32] LABS: ARTERIAL BLD GAS O2 SATURATION 96.6 % (90.0-100.0); ARTERIAL BLOOD GAS CARBOXY HB 0.7 %sat (0.0-9.0); ARTERIAL BLOOD GAS HCO3 27.6 mmol/L; ARTERIAL BLOOD GAS MET HB 0.8 %sat (0.0-2.0); ARTERIAL BLOOD GAS PCO2 43.3 mmHg (35.0-45.0); ARTERIAL BLOOD GAS PO2 96.9 mmHg (80.0-100); ARTERIAL BLOOD GAS pH 7.412 (7.350-7.450)
[2017-01-12 12:46] LABS: ARTERIAL BLOOD GAS ALLEN TEST NORMAL; ARTERIAL DRAW? YES
[2017-01-12 12:47] LABS: ARTERIAL BLOOD GAS ART SITE LEFT RADIAL
[2017-01-12 12:48] LABS: ARTERIAL BLOOD GAS DELIVERY BIPAP12/5
[2017-01-13 03:57] LABS: ARTERIAL BLOOD GAS CARBOXY HB 0.4 %sat (0.0-9.0); ARTERIAL BLOOD GAS HCO3 25.1 mmol/L; ARTERIAL BLOOD GAS MET HB 0.7 %sat (0.0-2.0); ARTERIAL BLOOD GAS PCO2 37.8 mmHg (35.0-45.0); ARTERIAL BLOOD GAS pH 7.431 (7.350-7.450)
[2017-01-13 04:02] LABS: ARTERIAL BLOOD GAS ALLEN TEST NORMAL; ARTERIAL BLOOD GAS ART SITE RIGHT RADIAL; ARTERIAL DRAW? YES
[2017-01-13 06:27] LABS: ALBUMIN SERUM 2.2 g/dL (3.5-5.0); BUN/CREATININE RATIO 21.81; CALCIUM SERUM 7.8 mg/dL (8.4-10.2); CREATININE SERUM 1.1 mg/dL (0.6-1.4); GLOM FILT RATE Estimated 61.8 mL/min (>60); POTASSIUM 3.6 mmol/L (3.5-5.1); PROTEIN TOTAL SERUM 5.3 g/dL (6.0-8.3)
[2017-01-13 08:55] LABS: BASOPHIL# 0.1 X10e3 (0-0.3); BASOPHIL% 0.4 % (0-2.5); EOSINOPHIL% 0.1 % (0.0-7.0); HEMATOCRIT 31.3 % (38.0-50.0); LYMPHOCYTE# 0.7 X10e3 (1.0-3.5); LYMPHOCYTE% 5.8 % (17.0-45.0); MEAN CELL VOLUME 96.3 FL (83-96); MEAN CORPUSCULAR HEMOGLOBIN 30.8 PG (28-34); MEAN PLATELET VOLUME 7.7 FL (6.5-11.5); MONOCYTE# 0.8 X10e3 (0-1.0); NEUTROPHIL# 11.1 X10e3 (1.5-7.1); NEUTROPHIL% 87.7 % (40-75); PLATELET COUNT 316 X10e3 (140-420); RED BLOOD COUNT 3.26 X10e (3.90-5.60); RED CELL DISTRIBUTION WIDTH 16.6 % (11.0-15.5); WHITE BLOOD COUNT 12.7 X10e3 (4.0-10.5)
[2017-01-13 09:04] LABS: DIFF IND NO
[2017-01-13 12:34] LABS: CK TOTAL 24 IU/L (36-174)
[2017-01-14 03:49] LABS: ARTERIAL BLD GAS O2 SATURATION 93.2 % (90.0-100.0); ARTERIAL BLOOD GAS CARBOXY HB 0.8 %sat (0.0-9.0); ARTERIAL BLOOD GAS HCO3 27.3 mmol/L; ARTERIAL BLOOD GAS MET HB 0.7 %sat (0.0-2.0); ARTERIAL BLOOD GAS PCO2 38.9 mmHg (35.0-45.0); ARTERIAL BLOOD GAS pH 7.454 (7.350-7.450)
[2017-01-14 03:57] LABS: ARTERIAL BLOOD GAS PO2 68.7 mmHg (80.0-100)
[2017-01-14 03:58] LABS: ARTERIAL BLOOD GAS ALLEN TEST NORMAL; ARTERIAL BLOOD GAS ART SITE RIGHT RADIAL; ARTERIAL BLOOD GAS DELIVERY NASAL CANNULA; ARTERIAL DRAW? YES
[2017-01-14 05:29] LABS: BASOPHIL% 0.3 % (0-2.5); EOSINOPHIL# 0.1 X10e3 (0-0.7); EOSINOPHIL% 0.4 % (0.0-7.0); HEMATOCRIT 30.9 % (38.0-50.0); HEMOGLOBIN 9.9 gm/dL (13.0-16.0); LYMPHOCYTE# 0.7 X10e3 (1.0-3.5); LYMPHOCYTE% 5.3 % (17.0-45.0); MEAN CELL VOLUME 96.4 FL (83-96); MEAN CORPUSCULAR HEMOGLOBIN 30.7 PG (28-34); MEAN CORPUSCULAR HGB CONC 31.9 g/dL (30-36); MEAN PLATELET VOLUME 7.6 FL (6.5-11.5); MONOCYTE# 0.9 X10e3 (0-1.0); MONOCYTE% 6.9 % (3.0-12.0); NEUTROPHIL% 87.1 % (40-75); PLATELET COUNT 314 X10e3 (140-420); RED BLOOD COUNT 3.21 X10e (3.90-5.60); WHITE BLOOD COUNT 12.6 X10e3 (4.0-10.5)
[2017-01-14 05:39] LABS: DIFF IND NO
[2017-01-14 06:20] LABS: ALBUMIN SERUM 2.3 g/dL (3.5-5.0); BILIRUBIN,TOTAL 0.3 mg/dL (0.2-2.0); BUN/CREATININE RATIO 22.72; CALCIUM SERUM 8.1 mg/dL (8.4-10.2); CREATININE SERUM 1.1 mg/dL (0.6-1.4); GLOM FILT RATE Estimated 61.8 mL/min (>60); POTASSIUM 3.8 mmol/L (3.5-5.1); PROTEIN TOTAL SERUM 5.3 g/dL (6.0-8.3)
[2017-01-15 05:26] LABS: BASOPHIL% 0.1 % (0-2.5); EOSINOPHIL% 0.1 % (0.0-7.0); HEMOGLOBIN 10.1 gm/dL (13.0-16.0); LYMPHOCYTE# 0.6 X10e3 (1.0-3.5); LYMPHOCYTE% 5.7 % (17.0-45.0); MEAN CELL VOLUME 97.2 FL (83-96); MEAN CORPUSCULAR HEMOGLOBIN 31.7 PG (28-34); MEAN CORPUSCULAR HGB CONC 32.6 g/dL (30-36); MEAN PLATELET VOLUME 7.9 FL (6.5-11.5); MONOCYTE# 0.4 X10e3 (0-1.0); MONOCYTE% 3.9 % (3.0-12.0); NEUTROPHIL# 9.4 X10e3 (1.5-7.1); NEUTROPHIL% 90.2 % (40-75); PLATELET COUNT 314 X10e3 (140-420); RED BLOOD COUNT 3.19 X10e (3.90-5.60); RED CELL DISTRIBUTION WIDTH 17.2 % (11.0-15.5); WHITE BLOOD COUNT 10.4 X10e3 (4.0-10.5)
[2017-01-15 05:54] LABS: DIFF IND NO
[2017-01-15 06:17] LABS: CALCIUM SERUM 8.1 mg/dL (8.4-10.2); GLOM FILT RATE Estimated 69.3 mL/min (>60); POTASSIUM 4.3 mmol/L (3.5-5.1)
[2017-01-16 03:58] LABS: BASOPHIL% 0.1 % (0-2.5); EOSINOPHIL# 0.1 X10e3 (0-0.7); EOSINOPHIL% 1.3 % (0.0-7.0); HEMATOCRIT 30.5 % (38.0-50.0); HEMOGLOBIN 9.8 gm/dL (13.0-16.0); LYMPHOCYTE# 1.1 X10e3 (1.0-3.5); LYMPHOCYTE% 11.2 % (17.0-45.0); MEAN CELL VOLUME 96.1 FL (83-96); MEAN CORPUSCULAR HGB CONC 32.3 g/dL (30-36); MEAN PLATELET VOLUME 7.1 FL (6.5-11.5); MONOCYTE# 0.9 X10e3 (0-1.0); MONOCYTE% 9.2 % (3.0-12.0); NEUTROPHIL# 7.6 X10e3 (1.5-7.1); NEUTROPHIL% 78.2 % (40-75); PLATELET COUNT 291 X10e3 (140-420); RED BLOOD COUNT 3.17 X10e (3.90-5.60); RED CELL DISTRIBUTION WIDTH 17.4 % (11.0-15.5); WHITE BLOOD COUNT 9.8 X10e3 (4.0-10.5)
[2017-01-16 03:59] LABS: DIFF IND NO
[2017-01-16 04:18] LABS: BUN/CREATININE RATIO 28.88; CALCIUM SERUM 8.1 mg/dL (8.4-10.2); CREATININE SERUM 0.9 mg/dL (0.6-1.4); GLOM FILT RATE Estimated 78.7 mL/min (>60); POTASSIUM 3.5 mmol/L (3.5-5.1)
[2017-01-16 15:06] LABS: ARTERIAL BLD GAS O2 SATURATION 93.7 % (90.0-100.0); ARTERIAL BLOOD GAS HCO3 31.4 mmol/L; ARTERIAL BLOOD GAS MET HB 0.2 %sat (0.0-2.0); ARTERIAL BLOOD GAS PCO2 48.6 mmHg (35.0-45.0); ARTERIAL BLOOD GAS pH 7.418 (7.350-7.450)
[2017-01-16 15:07] LABS: ARTERIAL BLOOD GAS ART SITE RIGHT BRACHIAL; ARTERIAL BLOOD GAS DELIVERY NASAL CANNULA; ARTERIAL BLOOD GAS PO2 71.4 mmHg (80.0-100); ARTERIAL DRAW? YES
[2017-01-17 05:27] LABS: BASOPHIL% 0.5 % (0-2.5); EOSINOPHIL# 0.2 X10e3 (0-0.7); EOSINOPHIL% 1.6 % (0.0-7.0); HEMATOCRIT 30.9 % (38.0-50.0); LYMPHOCYTE# 0.8 X10e3 (1.0-3.5); LYMPHOCYTE% 7.9 % (17.0-45.0); MEAN CELL VOLUME 97.3 FL (83-96); MEAN CORPUSCULAR HEMOGLOBIN 31.3 PG (28-34); MEAN CORPUSCULAR HGB CONC 32.2 g/dL (30-36); MEAN PLATELET VOLUME 7.9 FL (6.5-11.5); MONOCYTE# 0.8 X10e3 (0-1.0); MONOCYTE% 7.8 % (3.0-12.0); NEUTROPHIL# 8.6 X10e3 (1.5-7.1); NEUTROPHIL% 82.2 % (40-75); PLATELET COUNT 285 X10e3 (140-420); RED BLOOD COUNT 3.18 X10e (3.90-5.60); RED CELL DISTRIBUTION WIDTH 17.5 % (11.0-15.5); WHITE BLOOD COUNT 10.4 X10e3 (4.0-10.5)
[2017-01-17 05:38] LABS: DIFF IND NO
[2017-01-17 06:10] LABS: CALCIUM SERUM 8.1 mg/dL (8.4-10.2); POTASSIUM 3.7 mmol/L (3.5-5.1)
[2017-01-17 06:22] LABS: BUN/CREATININE RATIO 27.5; CREATININE SERUM 0.8 mg/dL (0.6-1.4); GLOM FILT RATE Estimated 82.6 mL/min (>60)
[2017-01-18 05:40] LABS: BASOPHIL% 0.5 % (0-2.5); EOSINOPHIL# 0.1 X10e3 (0-0.7); EOSINOPHIL% 0.9 % (0.0-7.0); HEMATOCRIT 28.5 % (38.0-50.0); HEMOGLOBIN 9.3 gm/dL (13.0-16.0); LYMPHOCYTE# 0.9 X10e3 (1.0-3.5); LYMPHOCYTE% 9.4 % (17.0-45.0); MEAN CELL VOLUME 97.2 FL (83-96); MEAN CORPUSCULAR HEMOGLOBIN 31.9 PG (28-34); MEAN CORPUSCULAR HGB CONC 32.8 g/dL (30-36); MEAN PLATELET VOLUME 7.7 FL (6.5-11.5); MONOCYTE# 0.8 X10e3 (0-1.0); MONOCYTE% 8.6 % (3.0-12.0); NEUTROPHIL# 7.5 X10e3 (1.5-7.1); NEUTROPHIL% 80.6 % (40-75); PLATELET COUNT 249 X10e3 (140-420); RED BLOOD COUNT 2.93 X10e (3.90-5.60); RED CELL DISTRIBUTION WIDTH 17.7 % (11.0-15.5); WHITE BLOOD COUNT 9.4 X10e3 (4.0-10.5)
[2017-01-18 05:51] LABS: DIFF IND NO
[2017-01-18 06:28] LABS: BUN/CREATININE RATIO 31.25; CALCIUM SERUM 7.7 mg/dL (8.4-10.2); CREATININE SERUM 0.8 mg/dL (0.6-1.4); GLOM FILT RATE Estimated 82.6 mL/min (>60); POTASSIUM 3.9 mmol/L (3.5-5.1)
[2017-01-20 06:11] LABS: HEMATOCRIT 30.6 % (38.0-50.0); HEMOGLOBIN 9.7 gm/dL (13.0-16.0); MEAN CELL VOLUME 98.9 FL (83-96); MEAN CORPUSCULAR HEMOGLOBIN 31.6 PG (28-34); MEAN CORPUSCULAR HGB CONC 31.9 g/dL (30-36); MEAN PLATELET VOLUME 8.1 FL (6.5-11.5); RED BLOOD COUNT 3.09 X10e (3.90-5.60); RED CELL DISTRIBUTION WIDTH 18.4 % (11.0-15.5); WHITE BLOOD COUNT 7.1 X10e3 (4.0-10.5)
[2017-01-20 06:55] LABS: CALCIUM SERUM 8.2 mg/dL (8.4-10.2); CREATININE SERUM 0.8 mg/dL (0.6-1.4); GLOM FILT RATE Estimated 82.6 mL/min (>60); POTASSIUM 4.3 mmol/L (3.5-5.1)
== END 2017-01-22 14:47 | DRG 870 ==
LOC: CED 03:08 → CEDOF 06:45 → CICCU2 06:45 → CEDOF 06:46 → CED 06:46 → CICCU2 08:45 → CEDOF 08:45 → CICCU2 01-10 06:47 → C3A PCU 01-18 17:15
PROVIDERS: Emergency Medicine; Family Medicine; Internal Medicine; Internal Medicine Cardiovascular Disease; Internal Medicine Pulmonary Disease
PROC: 0BH17EZ Insertion of Endotracheal Airway into Trachea, Via Natural or Artificial Opening (ICD-10-PCS; principal; 2017-01-01)
PROC: 5A1955Z Respiratory Ventilation, Greater than 96 Consecutive Hours (ICD-10-PCS; 2017-01-01)
PROC: 05HM33Z Insertion of Infusion Device into Right Internal Jugular Vein, Percutaneous Approach (ICD-10-PCS; 2017-01-01)
PROC: B543ZZA Ultrasonography of Right Jugular Veins, Guidance (ICD-10-PCS; 2017-01-01)
PROC: B24BYZZ Ultrasonography of Heart with Aorta using Other Contrast (ICD-10-PCS; 2017-01-01)
PROC: 0BBB8ZX Excision of Left Lower Lobe Bronchus, Via Natural or Artificial Opening Endoscopic, Diagnostic (ICD-10-PCS; 2017-01-07)
PROC: 0B938ZX Drainage of Right Main Bronchus, Via Natural or Artificial Opening Endoscopic, Diagnostic (ICD-10-PCS; 2017-01-07)
PROC: 0B968ZX Drainage of Right Lower Lobe Bronchus, Via Natural or Artificial Opening Endoscopic, Diagnostic (ICD-10-PCS; 2017-01-07)
PROC: 0B958ZX Drainage of Right Middle Lobe Bronchus, Via Natural or Artificial Opening Endoscopic, Diagnostic (ICD-10-PCS; 2017-01-07)
PROC: 0B948ZX Drainage of Right Upper Lobe Bronchus, Via Natural or Artificial Opening Endoscopic, Diagnostic (ICD-10-PCS; 2017-01-07)
PROC: 0DH63UZ Insertion of Feeding Device into Stomach, Percutaneous Approach (ICD-10-PCS; 2017-01-16)
PROC: 0DJ08ZZ Inspection of Upper Intestinal Tract, Via Natural or Artificial Opening Endoscopic (ICD-10-PCS; 2017-01-16)
PROC: 05H533Z Insertion of Infusion Device into Right Subclavian Vein, Percutaneous Approach (ICD-10-PCS; 2017-01-18)
PROC: B546ZZA Ultrasonography of Right Subclavian Vein, Guidance (ICD-10-PCS; 2017-01-18)
DX: A41.9 Sepsis, unspecified organism (principal); J69.0 Pneumonitis due to inhalation of food and vomit; I21.4 Non-ST elevation (NSTEMI) myocardial infarction; R65.21 Severe sepsis with septic shock; E43 Unspecified severe protein-calorie malnutrition; G92 Toxic encephalopathy; I50.33 Acute on chronic diastolic (congestive) heart failure; J90 Pleural effusion, not elsewhere classified; J96.01 Acute respiratory failure with hypoxia; J96.02 Acute respiratory failure with hypercapnia; L89.153 Pressure ulcer of sacral region, stage 3; J44.0 Chronic obstructive pulmonary disease with (acute) lower respiratory infection; I69.954 Hemiplegia and hemiparesis following unspecified cerebrovascular disease affecting left non-dominant side; N39.0 Urinary tract infection, site not specified; J44.1 Chronic obstructive pulmonary disease with (acute) exacerbation; M62.82 Rhabdomyolysis; I50.32 Chronic diastolic (congestive) heart failure; I48.0 Paroxysmal atrial fibrillation; N40.1 Benign prostatic hyperplasia with lower urinary tract symptoms; R33.8 Other retention of urine; M62.3 Immobility syndrome (paraplegic); K44.9 Diaphragmatic hernia without obstruction or gangrene; I08.1 Rheumatic disorders of both mitral and tricuspid valves; I25.10 Atherosclerotic heart disease of native coronary artery without angina pectoris; E78.5 Hyperlipidemia, unspecified; F17.210 Nicotine dependence, cigarettes, uncomplicated; I25.2 Old myocardial infarction; K21.9 Gastro-esophageal reflux disease without esophagitis; J20.9 Acute bronchitis, unspecified; F03.90 Unspecified dementia, unspecified severity, without behavioral disturbance, psychotic disturbance, mood disturbance, and anxiety; R13.10 Dysphagia, unspecified; Z68.27 Body mass index [BMI] 27.0-27.9, adult; L89.152 Pressure ulcer of sacral region, stage 2; Z68.23 Body mass index [BMI] 23.0-23.9, adult
CPT/HCPCS: 31500; 36600; 70450; 71010; 74000; 80048; 80053; 80076; 80200; 81003; 82140; 82308; 82550; 82553; 82803; 82947; 83605; 83735; 83880; 84100; 84484; 85025; 85027; 87040; 87070; 87086; 87088; 87102; 87106; 87116; 87186; 87205; 87206; 88108; 88305; 88312; 89190; 93005; 93306; 94002; 94003; 94640; 94660; 94760; 94761; 96361; 96365; 97110; 97163; 97167; 97530; 99291; C9113; G8978-GP; G8979-GP; G8987-GO; G8988-GO; G8989-GO; J1120; J1630; J1650; J1815; J2185; J2250; J2543; J2765; J2920; J2930; J3010; J3260; J3370

== ENCOUNTER 2017-01-22 22:59 | Emergency (ER) | payer MEDICARE ==
[~2017-01-22] VITALS: Ht 180.3 cm; Wt 88.5 kg
[2017-01-23 00:12] LABS: BASOPHIL# 0.1 X10e3 (0-0.3); BASOPHIL% 1.4 % (0-2.5); EOSINOPHIL# 0.3 X10e3 (0-0.7); EOSINOPHIL% 4.2 % (0.0-7.0); HEMATOCRIT 33.2 % (38.0-50.0); HEMOGLOBIN 10.7 gm/dL (13.0-16.0); LYMPHOCYTE# 1.1 X10e3 (1.0-3.5); LYMPHOCYTE% 13.5 % (17.0-45.0); MEAN CELL VOLUME 97.5 FL (83-96); MEAN CORPUSCULAR HEMOGLOBIN 31.6 PG (28-34); MEAN CORPUSCULAR HGB CONC 32.4 g/dL (30-36); MEAN PLATELET VOLUME 7.5 FL (6.5-11.5); MONOCYTE# 0.6 X10e3 (0-1.0); MONOCYTE% 7.8 % (3.0-12.0); NEUTROPHIL# 5.7 X10e3 (1.5-7.1); NEUTROPHIL% 73.1 % (40-75); PLATELET COUNT 246 X10e3 (140-420); RED CELL DISTRIBUTION WIDTH 18.1 % (11.0-15.5); WHITE BLOOD COUNT 7.8 X10e3 (4.0-10.5)
[2017-01-23 00:13] LABS: DIFF IND NO
== END 2017-01-23 03:20 | disposition home or self-care (01) ==
LOC: CED 22:59
PROVIDERS: Emergency Medicine
DX: K94.21 Gastrostomy hemorrhage (principal); I50.9 Heart failure, unspecified; F03.90 Unspecified dementia, unspecified severity, without behavioral disturbance, psychotic disturbance, mood disturbance, and anxiety; Z85.841 Personal history of malignant neoplasm of brain
CPT/HCPCS: 36415; 85025; 99283